=== PATIENT | male | born 1970 | race African-American/Black ===

== ENCOUNTER 2018-05-29 19:51 | Emergency (ER) | payer OTHER ==
--- NOTE | 2018-05-29 20:24 | PDOC ---
History of Present Illness - General Stated Complaint: R/O PE Time Seen by Provider: 05/29/18 20:02 - History of Present Illness Initial Comments: 05/29/18 20:24 Mr. 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 Patient was evaluated at [facility] 05/21 for R sided leg pain with positive findings of decreased Right sided DVT. The patient denies shortness of breath, headache and dizziness. Denies fever, chills, nausea, vomit, diarrhea and constipation. Denies dysuria, frequency, urgency and hematuria. Past History - Past Medical History Allergies/Adverse Reactions: Allergies Allergy/AdvReac Type Severity Reaction Status Date / Time apple Allergy Verified 05/29/18 20:22 carrot Allergy Verified 05/29/18 20:22 Penicillins Allergy Verified 05/29/18 20:22 shellfish derived Allergy Verified 05/29/18 20:22 Home Medications: Ambulatory Orders Docusate Sodium [Colace -] 300 mg PO HS #15 capsule 09/15/15 Warfarin Na [Coumadin -] 10 mg PO DAILY@1800 #30 tablet 09/15/15 Docusate Sodium [Colace -] 100 mg PO TID #90 capsule 09/30/15 Oxycodone HCl/Acetaminophen [Percocet 5-325 mg Tablet] 1 tab PO Q6H #60 tablet MDD 4 09/30/15 Warfarin Sodium [Coumadin] 10 mg PO DAILY #7 tablet 10/19/15 Cardiac Disorders: Yes (Bilateral DVTs) DVT: Yes (left) - Surgical History Lung Surgery: Yes (PE) - Suicide/Smoking/Psychosocial Hx Smoking History: Never smoked Have you smoked in the past 12 months: Yes Number of Cigarettes Smoked Daily: 2 'Breaking Loose' booklet given: 09/02/15 Hx Alcohol Use: No Drug/Substance Use Hx: No Substance Use Type: None Review of Systems - Review of Systems Comments:: 05/29/18 20:27 GENERAL/CONSTITUTIONAL: No fever or chills. No weakness. HEAD, EYES, EARS, NOSE AND THROAT: No change in vision. No ear pain or discharge. No sore throat. CARDIOVASCULAR: +Left sided chest pain as described. No shortness of breath RESPIRATORY: No cough, wheezing, or hemoptysis. GASTROINTESTINAL: No nausea, vomiting, diarrhea or constipation. GENITOURINARY: No dysuria, frequency, or change in urination. MUSCULOSKELETAL: No joint or muscle swelling or pain. No neck or back pain. SKIN: No rash NEUROLOGIC: No headache, vertigo, loss of consciousness, or change in strength/ sensation. ENDOCRINE: No increased thirst. No abnormal weight change HEMATOLOGIC/LYMPHATIC: No anemia, easy bleeding, or history of blood clots. ALLERGIC/IMMUNOLOGIC: No hives or skin allergy. *Physical Exam - Physical Exam Comments: 05/29/18 20:27 GENERAL: Awake, alert, and fully oriented, in no acute distress HEAD: No signs of trauma, normocephalic, atraumatic EYES: PERRLA, EOMI, sclera anicteric, conjunctiva clear ENT: Auricles normal inspection, hearing grossly normal, nares patent, oropharynx clear without exudates. Moist mucosa NECK: Normal ROM, supple, no lymphadenopathy, JVD, or masses LUNGS: No distress, speaks full sentences, clear to auscultation bilaterally HEART: Regular rate and rhythm, normal S1 and S2, no murmurs, rubs or gallops, peripheral pulses normal and equal bilaterally. ABDOMEN: Soft, nontender, normoactive bowel sounds. No guarding, no rebound. No masses EXTREMITIES: Normal inspection, Normal range of motion, no edema. No clubbing or cyanosis. NEUROLOGICAL: Cranial nerves II through XII grossly intact. Normal speech, normal gait, no focal sensorimotor deficits SKIN: Warm, Dry, normal turgor, no rashes or lesions noted. ED Treatment Course - LABORATORY CBC & Chemistry Diagram: 05/29/18 21:00 05/29/18 21:00 Medical Decision Making - Medical Decision Making 05/29/18 20:28 Mr. Nolan is a 47 yo male w/ pmh as described who presents for evaluation of symptoms concerning for DVT vs. PE vs. ACS. 05/29/18 23:58 Patient evaluated with Chest CTA with no acute findings. Labs grossly wnl as below. No concern for acute process at this time. Patient pain controlled with toradol. Suspect etiology of pain costochondritis. Discharging to home for further outpatient management of DVT with current lovenox regimen. *DC/Admit/Observation/Transfer Diagnosis at time of Disposition: Costochondritis - Discharge Dispostion Disposition: HOME - Referrals Referrals: Gabbie Hernandes MD [Primary Care Provider] - - Patient Instructions Printed Discharge Instructions: DI for Atypical Chest Pain Additional Instructions: You were evaluated today in the ER for your chest pain. We performed a chest CTA to evaluate for PE which was negative. No concerning findings were found on laboratory evaluation. Please follow-up with primary care provider in 1-2 days for further evaluation. Return to ER if any difficulty breathing, fever, increase in pain, or other concerning symptoms. - Post Discharge Activity
[2018-05-29 20:35] VITALS: BP 107/73; PULSE 63; TEMP 98.6; BMI 38.0
--- NOTE | 2018-05-29 20:35 | PDOC ---
Attending Attestation - HPI HPI: 05/29/18 20:46 The patient is a 47 year old male, with a significant past medical history of DM , prior DVT/PE (on Lovenox), sarcoidosis, OA, L eye blindness, who presents to the emergency department with, left-sided rib pain radiating to the back which he describes similar to his previous PE. Patient has a known RLE DVT which was getting smaller on ultrasound done 05/21 at [facility]. He denies any recent fevers, chills, headache or dizziness. He denies any recent nausea, vomit, diarrhea or constipation. He denies any recent palpitations or shortness of breath. He denies any recent dysuria, frequency, urgency or hematuria. Allergies: Penicillin, apple, carrot, shellfish derived. Primary Care Physician: Dr. Hernandes <Clara Dodson - Last Filed: 05/29/18 20:53> - Resident Resident Name: Vadim Bobby - ED Attending Attestation I have performed the following: I have examined & evaluated the patient, The case was reviewed & discussed with the resident, I agree w/resident's findings & plan, Exceptions are as noted - Physicial Exam PE: 05/30/18 00:00 Agree with details of exam as documented by resident No point tenderness, swelling, deformity over rib where pt is having px Normal BS, CTAB, normal wob - Medical Decision Making 05/30/18 00:01 Pt with hx of dvt/pe with pleuritic cp similar in sensation to prior PE r/o PE CTA neg for acute PE or other acute intrathoracic pathology Labs unremarkable Pt is well appearing, normal WOB DC home with strict return instructions <Zachary Moreira - Last Filed: 05/30/18 00:04> Attestations - Attestations 05/29/18 20:46 Documentation prepared by Clara Dodson, acting as medical anthropologist for Zachary Moreira MD. <Clara Dodson - Last Filed: 05/29/18 20:53>
[2018-05-29 21:26] LABS: BASO % 0.8 % (0-2.0); EOS % 2.4 % (0-4.5); HEMATOCRIT 43.8 % (35.4-49); HEMOGLOBIN 15.3 GM/dL (11.7-16.9); LYMPH % 47.1 % (8-40); MCH 32.7 pg (25.7-33.7); MEAN CELL VOLUME 93.5 fl (80-96); MEAN PLT VOLUME 8.7 fl (7.5-11.1); MONO % 10.3 % (3.8-10.2); NEUT % 39.4 % (42.8-82.8); PLATELET COUNT 190 K/MM3 (134-434); RBC 4.68 M/mm3 (4.00-5.60); WHITE BLOOD COUNT 4.7 K/mm3 (4.0-10.0)
[2018-05-29 21:52] LABS: INR 0.99 (0.83-1.09); PROTHROMBIN TIME (PATIENT) 11.7 SEC (9.7-13.0)
[2018-05-29 21:55] LABS: ACTIVATED PTT 35.8 SECONDS (25.2-36.5)
[2018-05-29 22:20] LABS: ALK PHOS 143 U/L (45-117); ANION GAP 6 MMOL/L (8-16); BLOOD UREA NITROGEN 13 mg/dL (7-18); CALCIUM 9.2 mg/dL (8.5-10.1); CHLORIDE 101 mmol/L (98-107); CO2 28 mmol/L (21-32); CREATININE 0.9 mg/dL (0.55-1.3); GLUCOSE,RANDOM 147 mg/dL (74-106); POTASSIUM 4.5 mmol/L (3.5-5.1); SGOT/AST 33 U/L (15-37); SGPT/ALT 46 U/L (13-61); SODIUM 135 mmol/L (136-145); TOT PROT 7.9 g/dl (6.4-8.2)
[2018-05-29] MEDS ORDERED: KETOROLAC TROMETHAMINE 15 MG/ML VIAL IVPUSH ONE (23:57)
[2018-05-30] MEDS ORDERED: KETOROLAC TROMETHAMINE 15 MG/ML VIAL ONE (00:08)
--- NOTE | 2018-05-30 10:57 | EKG ---
Test Reason : Blood Pressure : / mmHG Vent. Rate : 063 BPM Atrial Rate : 063 BPM P-R Int : 200 ms QRS Dur : 092 ms QT Int : 412 ms P-R-T Axes : 051 038 059 degrees QTc Int : 421 ms NORMAL SINUS RHYTHM NORMAL ECG NO PREVIOUS ECGS AVAILABLE Confirmed by MARITZA BURRELL MD ([id number]) on 05/30/2018 10:57:00 AM Referred By: Confirmed By:MARITZA BURRELL MD
== END 2018-05-30 02:58 | disposition home or self-care (01) ==
LOC: JER 19:51
PROC: 3E0333Z Introduction of Anti-inflammatory into Peripheral Vein, Percutaneous Approach (ICD-10-PCS; principal; 2018-05-29)
DX: M94.0 Chondrocostal junction syndrome [Tietze] (principal); Z86.718 Personal history of other venous thrombosis and embolism; Z79.01 Long term (current) use of anticoagulants; E11.9 Type 2 diabetes mellitus without complications; D86.9 Sarcoidosis, unspecified; M19.90 Unspecified osteoarthritis, unspecified site; H54.40 Blindness, one eye, unspecified eye
CPT/HCPCS: 36415; 71275-TC; 80053; 82550; 82553; 84484; 85025; 85610; 85730; 86850; 86900; 86901; 93005; 93010; 99283-25

== ENCOUNTER 2019-01-28 14:39 | Inpatient (IN) | payer OTHER ==
--- NOTE | 2019-01-28 16:43 | PDOC ---
Documentation entered by Clara Dodson SCRIBE, acting as scribe for Issa Pablo MD. Issa Pablo MD: This documentation has been prepared by the Ivory silva Nirvannie, SCRIBE, under my direction and personally reviewed by me in its entirety. I confirm that the documentation accurately reflects all work, treatment, procedures, and medical decision making performed by me. Attending Attestation - Resident Resident Name: LeviTomasa - ED Attending Attestation I have performed the following: I have examined & evaluated the patient, The case was reviewed & discussed with the resident, I agree w/resident's findings & plan, Exceptions are as noted - HPI HPI: 01/28/19 16:26 The patient is a 48 year old male, with a significant past medical history of DM (?compliance with Januvia), prior DVT/PE (on Lovenox, ? compliance), sarcoidosis, OA, L eye blindness, who presents to the emergency department with right thigh pain and erythema. He first noticed a pimple on his medial right thigh 2 days ago. The pt then began to experience diffuse erythema to the thigh and 9/10 tenderness radiating down the right lower extremity. He notes difficulty ambulating secondary to pain. He also notes mild L calf pain and subjective fevers. As per patient, he saw his PCP Dr. North earlier today at which time he was advised to report to the ED for IV antibiotics. Pt denies F/C. He denies any recent chest pain or shortness of breath. He denies any foul smelling discharge. He denies any recent nausea, vomiting, diarrhea or constipation. He denies any recent dysuria, frequency, urgency or hematuria. Allergies: Penicillin, apple, carrot, shellfish derived. - Physicial Exam PE: 01/28/19 16:39 GENERAL: Awake, alert, and fully oriented, in no acute distress. HEAD: No signs of trauma EYES: PERRLA, EOMI, sclera anicteric, conjunctiva clear ENT: Auricles normal inspection, hearing grossly normal, nares patent, oropharynx clear without exudates. Moist mucosa NECK: Nontender, no stepoffs, Normal ROM, supple, no lymphadenopathy, JVD, or masses LUNGS: Breath sounds equal, clear to auscultation bilaterally. No wheezes, and no crackles HEART: Regular rate and rhythm, normal S1 and S2, no murmurs, rubs or gallops ABDOMEN: Soft, nontender, normoactive bowel sounds. No guarding, no rebound. No masses EXTREMITIES: Normal range of motion, no edema. No clubbing or cyanosis. No cords, erythema, or tenderness NEUROLOGICAL: Cranial nerves II through XII intact. 5/5 strength and sensation in all extremities, Normal speech, normal gait, normal cerebellar function SKIN: + 10cm area of erythema to medial R thigh, with induration and fluctuance centrally, + drainage of purulent material - Medical Decision Making 01/28/19 16:47 48 M with cellulitis and abscess of R thigh. - Labs - Cultures - I&D - Admit for IV abx 01/28/19 18:10 Abscess I&D'ed Clindamycin started Will admit for IV abx 01/28/19 18:50 US shows extensive LLE DVT. Pt has known h/o DVT and IVC filter in place. Is on lovenox at home (but likely noncompliant). Will order 1mg/kg lovenox SQ Pt denies CP/SOB, low suspicion for PE.
[2019-01-28] MEDS ORDERED: CLINDAMYCIN 600MG PREMIX IVPB 600 MG/50 ML BAG IVPB ONE (16:57)
--- NOTE | 2019-01-28 17:05 | PDOC ---
History of Present Illness - General Chief Complaint: Abscess Boil Stated Complaint: SENT BY PCP/LEG PAIN Time Seen by Provider: 01/28/19 15:06 History Source: Patient - History of Present Illness Initial Comments: 01/28/19 17:08 48 yo M PMH of DVT/ PE ( on lovenox) , Sarcoidosis ,DM, R eye blindness presents from [facility](Dr. North) for R thigh swelling, pain, abscess. pt states yesterday there was a small pimple there and he tried to scrub it. This morning he woke up and the leg was very painful and red. He states the pain is 9/10 and radiates down the leg. pt states he has a similar "pimple" on L buttock but its not red. Pt states he has fevers and a cough. denies n/v/SOB, or cp 01/28/19 17:35 PMD : Dr. Gabbie Arrington Past History - Past Medical History Allergies/Adverse Reactions: Allergies Allergy/AdvReac Type Severity Reaction Status Date / Time apple Allergy Verified 01/28/19 14:51 carrot Allergy Verified 01/28/19 14:51 Penicillins Allergy Verified 01/28/19 14:51 shellfish derived Allergy Verified 01/28/19 14:51 Home Medications: Ambulatory Orders Docusate Sodium [Colace -] 300 mg PO HS #15 capsule 09/15/15 Warfarin Na [Coumadin -] 10 mg PO DAILY@1800 #30 tablet 09/15/15 Docusate Sodium [Colace -] 100 mg PO TID #90 capsule 09/30/15 Oxycodone HCl/Acetaminophen [Percocet 5-325 mg Tablet] 1 tab PO Q6H #60 tablet MDD 4 09/30/15 Warfarin Sodium [Coumadin] 10 mg PO DAILY #7 tablet 10/19/15 Cardiac Disorders: Yes (Bilateral DVTs, blood clot in heart) COPD: No DVT: Yes (left) HTN: Yes Other medical history: pt states he had a blood clot size of football,arthritis - Surgical History Lung Surgery: Yes (PE) - Psycho Social/Smoking Cessation Hx Smoking History: Never smoked Have you smoked in the past 12 months: Yes Number of Cigarettes Smoked Daily: 2 Information on smoking cessation initiated: No 'Breaking Loose' booklet given: 09/02/15 Hx Alcohol Use: No Drug/Substance Use Hx: No Substance Use Type: None Review of Systems - Review of Systems Able to Perform ROS?: Yes Constitutional: Yes: Fever. No: Chills Respiratory: Yes: Cough. No: Shortness of Breath Cardiac (ROS): No: Chest Pain, Lightheadedness ABD/GI: No: Abdominal Distended, Diarrhea, Nausea, Vomiting, Abdominal cramping Musculoskeletal: No: Back Pain Integumentary: Yes: Erythema (R thigh), Lesions Neurological: Yes: Unsteady Gait (bc of pain from leg). No: Headache, Dizziness *Physical Exam - Vital Signs Last Vital Signs Temp Pulse Resp BP Pulse Ox 98.1 F 70 19 125/71 96 01/28/19 14:46 01/28/19 14:46 01/28/19 14:46 01/28/19 14:46 01/28/19 14:46 - Physical Exam General Appearance: Yes: Nourished, Appropriately Dressed. No: Apparent Distress HEENT: positive: Normal Voice Respiratory/Chest: positive: Lungs Clear, Normal Breath Sounds. negative: Respiratory Distress, Accessory Muscle Use, Wheezing Cardiovascular: positive: Regular Rhythm, Regular Rate, S1, S2 Vascular Pulses: Dorsalis-Pedis (R): 2+, Doralis-Pedis (L): 2+ Gastrointestinal/Abdominal: positive: Normal Bowel Sounds, Tender (RUQ to deep palpation), Soft, Hepatomegaly. negative: Distended Extremity: positive: Tender (R thigh ), Swelling, Calf Tenderness (LLE), Erythema (R thigh ), Inflammation Integumentary: positive: Dry, Warm Procedures - Incision and Drainage I&D Site: Right: Leg (thigh) Betadine cleansed: Yes Anesthesia: 1% Lidocaine Volume(ml): 2 Blade Size: 11 Plain Packing: No Dressing: No ED Treatment Course - LABORATORY CBC & Chemistry Diagram: 01/28/19 17:10 01/28/19 17:10 Medical Decision Making - Medical Decision Making 01/28/19 17:12 48 yo M presenting with abscess r/o DVT -abscess vs cellulitis -bedside u/s revealed collection. I&D performed. starting IV clinda . will obtain blood Cx -cbc, cmp -b/l duplex u/s to r/o dvt 01/28/19 19:05 duplex shows extensive LLE DVT. will give lovenox CMP shows elevated bili and alk phos. ordered RUQ u/s. u/s shows cholelithiasis no cholecytitis. admit to medicine Discharge - Discharge Information Problems reviewed: Yes Clinical Impression/Diagnosis: Cellulitis and abscess of right lower extremity DVT (deep venous thrombosis) Qualifiers: DVT location: lower extremity Affected thrombotic vein of extremity: femoral Chronicity: unspecified Laterality: left Qualified Code(s): I82.412 - Acute embolism and thrombosis of left femoral vein - Admission Yes - Follow up/Referral Referrals: Gabbie Hernandes MD [Primary Care Provider] - - Patient Discharge Instructions - Post Discharge Activity
[2019-01-28] MEDS: CLINDAMYCIN 600MG PREMIX IVPB 600 MG/50 ML BAG IVPB SCH ×2 (17:13→21:55)
[2019-01-28 17:32] LABS: BASO % 0.7 % (0-2.0); EOS % 1.1 % (0-4.5); HEMATOCRIT 41.6 % (35.4-49); HEMOGLOBIN 13.9 GM/dL (11.7-16.9); LYMPH % 18.2 % (8-40); MCH 31.4 pg (25.7-33.7); MCHC 33.4 g/dl (32.0-35.9); MEAN CELL VOLUME 93.8 fl (80-96); MEAN PLT VOLUME 8.3 fl (7.5-11.1); MONO % 7.7 % (3.8-10.2); NEUT % 72.3 % (42.8-82.8); PLATELET COUNT 223 K/MM3 (134-434); RBC 4.43 M/mm3 (4.00-5.60); RDW 13.6 % (11.9-15.9); WHITE BLOOD COUNT 11.3 K/mm3 (4.0-10.0)
[2019-01-28] MEDS ORDERED: ACETAMINOPHEN 325 MG TABLET (FP) PO PRN ×2 (17:34→21:38)
[2019-01-28 17:59] LABS: ALBUMIN 3.8 g/dl (3.4-5.0); BILIRUBIN,TOTAL 2.1 mg/dL (0.2-1); BLOOD UREA NITROGEN 9.6 mg/dL (7-18); TOT PROT 7.7 g/dl (6.4-8.2)
[2019-01-28] MEDS ORDERED: ENOXAPARIN NA (PORCINE) 120 MG/0.8 ML DISP.SYRIN SQ ONE (18:51)
[2019-01-28] MEDS ORDERED: ENOXAPARIN NA (PORCINE) 60 MG/0.6 ML DISP.SYRIN SQ ONE (19:41)
[2019-01-28] MEDS ORDERED: ACETAMINOPHEN 325 MG TABLET (FP) ONE (19:41)
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
[2019-01-28] MEDS ORDERED: SODIUM CHLORIDE 1,000 ML IV SCH (21:45)
[2019-01-28] MEDS ORDERED: ENOXAPARIN NA (PORCINE) 120 MG/0.8 ML DISP.SYRIN SQ SCH (22:00)
[2019-01-28] MEDS ORDERED: VANCOMYCIN 1 GM in D5W (PRE-DOCKED) 1,000 MG/250 ML IVPB SCH (22:00)
[2019-01-28] MEDS ORDERED: cefTRIAXone SODIUM 1 GM VIAL ONE (22:01)
[2019-01-28] MEDS ORDERED: DEXTROSE 5%-WATER - 50 ML IVPB ONE (22:01)
[2019-01-28] MEDS ORDERED: ACETAMINOPHEN 1000 MG/100 ML VIAL (NON FORMULARY) IVPB ONE (22:29)
[2019-01-28] MEDS: CEFTRIAXONE 1 GM in DEXTROSE 5%-WATER - 50 ML IVPB SCH (22:31)
--- NOTE | 2019-01-29 01:32 | PN ---
Teaching Attending Note Name of Resident: Ana Daniel ATTENDING PHYSICIAN STATEMENT I saw and evaluated the patient. I reviewed the resident's note and discussed the case with the resident. I agree with the resident's findings and plan as documented. 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 He began to experience severe tenderness radiating down the right lower extremity and was having difficulty with ambulation. Patient saw his PCP, Dr. North and was advised to report to the ED for IV antibiotics. OBJECTIVE: Last Vital Signs Temp Pulse Resp BP Pulse Ox 98.6 F 70 20 102/76 97 01/28/19 21:38 01/28/19 14:46 01/28/19 21:38 01/28/19 21:38 01/28/19 21:31 GENERAL: Well developed, well nourished. Awake and alert. No acute distress. HEENT: Normocephalic, atraumatic. PERRLA, EOMI. No conjunctival pallor. Sclera are non- icteric. Moist mucous membranes. Oropharynx is clear. NECK: Supple. Full ROM. No JVD. Carotid pulses 2+ and symmetric, without bruits. No thyromegaly. No lymphadenopathy. CARDIOVASCULAR: Regular rate and rhythm. No murmurs, rubs, or gallops. Distal pulses are 2+ and symmetric. PULMONARY: No evidence of respiratory distress. Lungs clear to auscultation bilaterally. No wheezing, rales or rhonchi. ABDOMINAL: Soft. Non-tender. Non-distended. No rebound or guarding. No organomegaly. Normoactive bowel sounds. MUSCULOSKELETAL Normal range of motion at all joints. No bony deformities or tenderness. No CVA tenderness. EXTREMITIES: Right inner thigh erythema and fluctuance SKIN: Warm and dry. Normal capillary refill. No rashes. No jaundice. PSYCHIATRIC: Cooperative. Good eye contact. Appropriate mood and affect. Abnormal Lab Results 01/28/19 01/28/19 17:10 17:10 WBC 11.3 H Absolute Neuts (auto) 8.1 H Anion Gap 5 L Random Glucose 152 H Total Bilirubin 2.1 H Alkaline Phosphatase 164 H Imaging studies reviewed Lower extremity duplex showed extensive left lower extremity DVT ASSESSMENT AND PLAN: 48-year-old male with right lower extremity cellulitis, Leukocytosis, appears extensive involving entire thigh and streaking down to leg. May have been related to scratching Blood cultures x2 ESR and CRP Vancomycin and ceftriaxone empirically A1c #Left lower extremity DVT Lovenox therapeutic dose #DVT prophylaxison Lovenox therapeutic dose already
[2019-01-29] MEDS ORDERED: cefTRIAXone SODIUM 1 GM VIAL ONE (08:55)
[2019-01-29] MEDS ORDERED: DEXTROSE 5%-WATER - 50 ML IVPB ONE (08:56)
[2019-01-29 09:15] LABS: BASO % 0.5 % (0-2.0); EOS % 4.8 % (0-4.5); HEMATOCRIT 39.3 % (35.4-49); HEMOGLOBIN 13.5 GM/dL (11.7-16.9); LYMPH % 28.3 % (8-40); MCH 31.6 pg (25.7-33.7); MCHC 34.2 g/dl (32.0-35.9); MEAN CELL VOLUME 92.3 fl (80-96); MEAN PLT VOLUME 8.3 fl (7.5-11.1); MONO % 11.2 % (3.8-10.2); NEUT % 55.2 % (42.8-82.8); PLATELET COUNT 206 K/MM3 (134-434); RBC 4.26 M/mm3 (4.00-5.60); RDW 13.5 % (11.9-15.9); WHITE BLOOD COUNT 6.1 K/mm3 (4.0-10.0)
[2019-01-29 09:57] LABS: ALBUMIN 3.2 g/dl (3.4-5.0); BILIRUBIN,TOTAL 1.4 mg/dL (0.2-1); BLOOD UREA NITROGEN 10.7 mg/dL (7-18); CALCIUM 8.5 mg/dL (8.5-10.1); CREATININE 0.9 mg/dL (0.55-1.3); MAGNESIUM 2.3 mg/dL (1.8-2.4); PHOSPHOROUS 4.2 mg/dL (2.5-4.9); POTASSIUM 4.1 mmol/L (3.5-5.1); TOT PROT 6.8 g/dl (6.4-8.2)
[2019-01-29] MEDS: ENOXAPARIN NA (PORCINE) 120 MG/0.8 ML DISP.SYRIN SQ SCH ×2 (10:08→21:03)
[2019-01-29] MEDS: CEFTRIAXONE 1 GM in DEXTROSE 5%-WATER - 50 ML IVPB SCH (10:08)
[2019-01-29 11:42] LABS: BILIRUBIN,DIRECT 0.4 mg/dL (0.0-0.2)
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
--- NOTE | 2019-01-29 14:13 | PN ---
Physical Exam: SUBJECTIVE: Patient seen and examined. No acute events overnight. Pt denies any fevers or chills. Pain in RLE is controlled. He is able to ambulate. Denies abd pain, nausea, or vomiting. OBJECTIVE: Vital Signs Period Temp Pulse Resp BP Sys/Rees Pulse Ox Last 24 Hr 97.3 F-98.6 F 70-70 19-20 97-125/65-76 96-97 GENERAL: The patient is awake, alert, and fully oriented, in no acute distress. HEAD: Normal with no signs of trauma. EYES: PERRL, extraocular movements intact, sclera anicteric, conjunctiva clear. No ptosis. NECK: Trachea midline, full range of motion, supple. LUNGS: Breath sounds equal, clear to auscultation bilaterally, no wheezes, no crackles, no accessory muscle use. HEART: Regular rate and rhythm, S1, S2 without murmur, rub or gallop. ABDOMEN: Soft, nontender, nondistended, normoactive bowel sounds, no guarding, no rebound, no hepatosplenomegaly, no masses. Negative Saavedra's sign. EXTREMITIES: 2+ pulses, warm L>R, well-perfused, trace edema L>R. L calf tenderness. NEUROLOGICAL: Cranial nerves II through XII grossly intact. Normal speech, gait not observed. PSYCH: Normal mood, normal affect. SKIN: Warm, dry, normal turgor, 1cm ulcer on R thigh, erythematous and fluctuant. Mild serosanguinous discharge. Laboratory Results - last 24 hr CBC, BMP 01/29/19 07:55 01/29/19 07:55 Active Medications Acetaminophen (Tylenol -) 650 mg PO Q4H PRN PRN Reason: PAIN LEVEL 1-5 Last Admin: 01/29/19 10:06 Dose: 650 mg Enoxaparin Sodium (Lovenox -) 120 mg SQ Q12H [facility] Last Admin: 01/29/19 10:08 Dose: 120 mg Ceftriaxone Sodium 1 gm/ (Dextrose) 50 mls @ 100 mls/hr IVPB DAILY [facility]; Protocol Last Admin: 01/29/19 10:08 Dose: 100 mls/hr Sodium Chloride (Normal Saline -) 1,000 mls @ 75 mls/hr IV ASDIR [facility]OS[facility] Last Admin: 01/28/19 21:58 Dose: 75 mls/hr Insulin Aspart (Novolog Vial Sliding Scale -) 1 vial SQ TIDAC [facility]; Protocol Vancomycin HCl (Vancomycin (Pre-Docked)) 1,000 mg IVPB DAILY [facility]; Protocol ASSESSMENT/PLAN: Patient is a 48 year old male with PMH sarcoidosis, DVTs, right eye blindness, and arthritis presents with R thigh redness, swelling and purulent drainage. Pt was admitted for right thigh cellulitis complicated with abscess s/p drain and new DVT on LLE. 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 Non-compliant with medication. Cont Lovenox 120 sq BID #RLE cellulitis w/abscess s/p I&D in ED I&D of 2ml fluid in ED Cont 1gm vancomycin and 1gm ceftriaxone (Day 2) Blood and wound cx pending MRSA screen ESR: 44 CRP: 8.6, monitor Gen surg consulted (Dr. Lang): scheduled I&D with washout 01/30/19 ID consulted (Dr. Issa) for abx coverage Fall precautions Tylenol 650mg Q4H prn for pain PT eval #Newly diagnosed diabetes Pt denies hx of diabetes Hgb A1C: 7.8% Initiate SSI TIDAC BGM ACHS Diabetic and nutrition counseling #Transaminitis T-bili: 2.1, ALP: 164, D-bili: 0.4 RUQ US: cholelithiasis, no evidence of cholecystitis, no biliary tract distension. Suggestive hepatic cirrhosis #Substance abuse F/u Utox #Sarcoidosis No hx of acute flares CXR: degenerative changes with wedging , no acute processes Pt does not f/u with rn family practice regularly. Consider outpatient appt on d/ c #FEN IV NS @ 75ml/hr Diabetic diet, NPO after midnight (except po meds) #DVT ppx On therapeutic lovenox, can cont given his risk. #Dispo Monitor on med-surg Visit type - Emergency Visit Emergency Visit: No - New Patient This patient is new to me today: Yes Date on this admission: 01/29/19 - Critical Care Critical Care patient: No ATTENDING PHYSICIAN STATEMENT I saw and evaluated the patient. I reviewed the resident's note and discussed the case with the resident. I agree with the resident's findings and plan as documented. SUBJECTIVE: OBJECTIVE: ASSESSMENT AND PLAN:
--- NOTE | 2019-01-29 14:46 | EKG ---
Test Reason : Blood Pressure : / mmHG Vent. Rate : 082 BPM Atrial Rate : 082 BPM P-R Int : 182 ms QRS Dur : 086 ms QT Int : 380 ms P-R-T Axes : 053 033 048 degrees QTc Int : 443 ms POOR DATA QUALITY, INTERPRETATION MAY BE ADVERSELY AFFECTED NORMAL SINUS RHYTHM POSSIBLE LEFT ATRIAL ENLARGEMENT BORDERLINE ECG WHEN COMPARED WITH ECG OF 29-MAY-2018 20:54, NO SIGNIFICANT CHANGE WAS FOUND Confirmed by TADEO ZELAYA, TOMY ([id number]) on 01/29/2019 2:46:10 PM Referred By: Confirmed By:TOMY PIEDRA MD
--- NOTE | 2019-01-29 15:52 | PN ---
Teaching Attending Note Name of Resident: Paulette Jeff ATTENDING PHYSICIAN STATEMENT I saw and evaluated the patient. I reviewed the resident's note and discussed the case with the resident. I agree with the resident's findings and plan as documented with exceptions below. SUBJECTIVE: Patient seen and examined, right thigh pain/redness, overall unchanged, left leg pain. no dyspnea, chest pain or concerns. OBJECTIVE: Vital Signs Period Temp Pulse Resp BP Sys/Rees Pulse Ox Last 24 Hr 97.3 F-98.6 F 70-77 20-20 97-124/65-76 97 Intake & Output 01/26/19 01/27/19 01/28/19 01/29/19 23:59 23:59 23:59 23:59 Intake Total 450 Output Total 400 300 Balance 50 -300 Weight 263 lb 6.4 oz General: sitting in bed in no acute distress CVS:S1S2 regular Chest: CTAb, no rales or wheezing Abdomen: soft, obese, NT Extremities: Right thigh 1 cm wound with purulent drainage, surrounding erythema extending upto 10 cm, pos warmth tenderness, left calf tenderness, pos DP pulses Home Medications Medication Instructions Recorded Enoxaparin [Lovenox -] 180 mg SQ BID 01/28/19 Active Medications Acetaminophen (Tylenol -) 650 mg PO Q4H PRN PRN Reason: PAIN LEVEL 1-5 Last Admin: 01/29/19 10:06 Dose: 650 mg Enoxaparin Sodium (Lovenox -) 120 mg SQ Q12H JOSIAH Last Admin: 01/29/19 10:08 Dose: 120 mg Sodium Chloride (Normal Saline -) 1,000 mls @ 75 mls/hr IV ASDIR [facility]OS[facility] Last Admin: 01/28/19 21:58 Dose: 75 mls/hr Vancomycin HCl 1,500 mg/ (Dextrose) 500 mls @ 250 mls/hr IVPB Q12H [facility]; Protocol Ceftriaxone Sodium 2 gm/ (Dextrose) 100 mls @ 200 mls/hr IVPB DAILY [facility]; Protocol Insulin Aspart (Novolog Vial Sliding Scale -) 1 vial SQ TIDAC [facility]; Protocol Laboratory Results - last 24 hr 01/28/19 01/28/19 01/28/19 17:10 17:10 18:58 WBC 11.3 H RBC 4.43 Hgb 13.9 Hct 41.6 MCV 93.8 MCH 31.4 MCHC 33.4 RDW 13.6 Plt Count 223 MPV 8.3 Absolute Neuts (auto) 8.1 H Neutrophils % 72.3 D Lymphocytes % 18.2 D Monocytes % 7.7 Eosinophils % 1.1 Basophils % 0.7 Nucleated RBC % 0 ESR PTT (Actin FS) 30.3 Sodium 136 Potassium 4.0 Chloride 102 Carbon Dioxide 29 Anion Gap 5 L BUN 9.6 Creatinine 1.0 Est GFR (CKD-EPI)AfAm 104.15 Est GFR (CKD-EPI)NonAf 89.86 Random Glucose 152 H Hemoglobin A1c % Calcium 9.0 Phosphorus Magnesium Total Bilirubin 2.1 H Direct Bilirubin AST 31 ALT 34 Alkaline Phosphatase 164 H C-Reactive Protein Total Protein 7.7 Albumin 3.8 Urine Color Urine Appearance Urine pH Ur Specific [place] Urine Protein Urine Glucose (UA) Urine Ketones Urine Blood Urine Nitrite Urine Bilirubin Urine Urobilinogen Ur Leukocyte Esterase Opiates Screen Methadone Screen Barbiturate Screen Ur Amphetamines Screen MDMA (Ecstasy) Screen Benzodiazepines Screen Cocaine Screen U Marijuana (THC) Screen 01/29/19 01/29/19 01/29/19 07:55 07:55 07:55 WBC 6.1 RBC 4.26 Hgb 13.5 Hct 39.3 MCV 92.3 MCH 31.6 MCHC 34.2 RDW 13.5 Plt Count 206 MPV 8.3 Absolute Neuts (auto) 3.4 Neutrophils % 55.2 D Lymphocytes % 28.3 D Monocytes % 11.2 H Eosinophils % 4.8 H D Basophils % 0.5 Nucleated RBC % 0 ESR 44 H PTT (Actin FS) Sodium 140 Potassium 4.1 Chloride 105 Carbon Dioxide 30 Anion Gap 4 L BUN 10.7 Creatinine 0.9 Est GFR (CKD-EPI)AfAm 118.30 Est GFR (CKD-EPI)NonAf 102.07 Random Glucose 116 H Hemoglobin A1c % Calcium 8.5 Phosphorus 4.2 Magnesium 2.3 Total Bilirubin 1.4 H Direct Bilirubin 0.4 H AST 37 ALT 36 Alkaline Phosphatase 147 H C-Reactive Protein 8.6 H Total Protein 6.8 Albumin 3.2 L Urine Color Urine Appearance Urine pH Ur Specific [place] Urine Protein Urine Glucose (UA) Urine Ketones Urine Blood Urine Nitrite Urine Bilirubin Urine Urobilinogen Ur Leukocyte Esterase Opiates Screen Methadone Screen Barbiturate Screen Ur Amphetamines Screen MDMA (Ecstasy) Screen Benzodiazepines Screen Cocaine Screen U Marijuana (THC) Screen 01/29/19 01/29/19 01/29/19 07:55 15:15 15:15 WBC RBC Hgb Hct MCV MCH MCHC RDW Plt Count MPV Absolute Neuts (auto) Neutrophils % Lymphocytes % Monocytes % Eosinophils % Basophils % Nucleated RBC % ESR PTT (Actin FS) Sodium Potassium Chloride Carbon Dioxide Anion Gap BUN Creatinine Est GFR (CKD-EPI)AfAm Est GFR (CKD-EPI)NonAf Random Glucose Hemoglobin A1c % 7.8 H Calcium Phosphorus Magnesium Total Bilirubin Direct Bilirubin AST ALT Alkaline Phosphatase C-Reactive Protein Total Protein Albumin Urine Color Dk yellow Urine Appearance Clear Urine pH 6.5 Ur Specific [place]ott 1.034 Urine Protein Trace Urine Glucose (UA) Trace Urine Ketones Negative Urine Blood Negative Urine Nitrite Negative Urine Bilirubin 1+ H Urine Urobilinogen >=8.0 e.u./dl Ur Leukocyte Esterase Negative Opiates Screen Negative Methadone Screen Negative Barbiturate Screen Negative Ur Amphetamines Screen Negative MDMA (Ecstasy) Screen Negative Benzodiazepines Screen Negative Cocaine Screen Negative U Marijuana (THC) Screen Negative LE duplex results reviewed ASSESSMENT AND PLAN: 48 yom with PMhx of sarcoidosis, Prior PE, multiple DVTs s/p IVC filter, thombectomy/Thrombolysis in 2016, prior on coumadin, now on lovenox (recent non compliance) , right eye blindness (got hit with a baseball in his youth) and arthritis admitted with right thigh abscess/cellulitis and LLE DVT -Right Thigh abscess/Cellulitis s/p I&D in ED -LLE DVT (acute on chronic), suspect in the setting of non compliance -New diagnosis of DM -H/o multile DVTs s/p IVC filter, also thombectomy/thrombolysis 2016 on full dose lovenox -Sarcoidosis -Right eye blindness -Arthritis Plan: Surgery consult, input appreciated, for I&D in AM NPO after midnight. Continue lovenox given his risk ID input, ceftriaxone/vancomycin. Send wound cultures ( not sent in ED) patient informed of the diagnosis of DM, a1c noted, start ISS, BGM. Diabetic education/counseling. Gentle hydration Drug screen. Dispo pending clinical improvement.
[2019-01-29 15:54] LABS: PH,URINE 6.5 (5.0-8.0); URINE APPEARANCE CLEAR; URINE BILIRUBIN 1+ (NEGATIVE); URINE COLOR DK YELLOW; URINE GLUCOSE (UA) TRACE (NEGATIVE); URINE KETONE NEGATIVE (NEGATIVE); URINE LEUK ESTERASE NEGATIVE (NEGATIVE); URINE NITRITE NEGATIVE (NEGATIVE); URINE PROTEIN TRACE (NEGATIVE); URINE UROBILINOGEN >=8.0 E.U./dl mg/dL (0.2-1.0)
--- NOTE | 2019-01-29 15:55 | PN ---
Progress Note (short form) - Note Progress Note: ID consult dictated imp/reccd right thigh abscess ?MRSA culture sent blood cultures pending vancomycin/rocephin for drainage in am recurrent DVT LLE history of sarcoid penicillin allergy Problem List - Problems (1) Cellulitis and abscess of right lower extremity Code(s): L03.115 - CELLULITIS OF RIGHT LOWER LIMB; L02.415 - CUTANEOUS ABSCESS OF RIGHT LOWER LIMB (2) DVT (deep venous thrombosis) Code(s): I82.409 - ACUTE EMBOLISM AND THOMBOS UNSP DEEP VN UNSP LOWER EXTREMITY Qualifiers: DVT location: lower extremity Affected thrombotic vein of extremity: femoral Chronicity: unspecified Laterality: left Qualified Code(s): I82.412 - Acute embolism and thrombosis of left femoral vein (3) Penicillin allergy Code(s): Z88.0 - ALLERGY STATUS TO PENICILLIN
[2019-01-29 16:03] LABS: COCAINE, UR NEGATIVE ng/ml (CUTOFF=300); METHADONE, UR NEGATIVE ng/ml (CUTOFF=300); OPIATES, URI NEGATIVE ng/ml (CUTOFF=300); URINE AMPHETAMINES NEGATIVE ng/ml (CUTOFF=500); URINE BARBITURATES NEGATIVE ng/ml (CUTOFF=200); URINE BENZODIAZEPINES NEGATIVE ng/ml (CUTOFF=200)
[2019-01-29 16:16] LABS: INR 1.08 (0.83-1.09); PROTHROMBIN TIME (PATIENT) 12.7 SEC (9.7-13.0)
[2019-01-29 16:17] LABS: PHENCYCLIDINE,URINE POSITIVE ng/ml (CUTOFF=25)
[2019-01-29] MEDS: VANCOMYCIN HCL 1,500 MG in DEXTROSE 5%-WATER - 500 ML IVPB SCH (17:57)
[2019-01-29] MEDS: INSULIN SLIDING SCALE (NOVOLOG) 1 VIAL SQ SCH (17:58)
[2019-01-29] MEDS: VANCOMYCIN 1 GM in D5W (PRE-DOCKED) 1,000 MG/250 ML IVPB SCH (18:04)
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
[2019-01-30] MEDS ORDERED: PT OWN MED DRAWER 7, Y5N ONE ×2 (01:20→09:37)
[2019-01-30] MEDS: VANCOMYCIN HCL 1,500 MG in DEXTROSE 5%-WATER - 500 ML IVPB SCH ×2 (03:08→17:11)
[2019-01-30] MEDS: INSULIN SLIDING SCALE (NOVOLOG) 1 VIAL SQ SCH ×3 (06:47→16:56)
[2019-01-30 07:42] LABS: HEMATOCRIT 40.9 % (35.4-49); HEMOGLOBIN 13.8 GM/dL (11.7-16.9); MCH 31.3 pg (25.7-33.7); MCHC 33.7 g/dl (32.0-35.9); MEAN CELL VOLUME 92.8 fl (80-96); MEAN PLT VOLUME 8.5 fl (7.5-11.1); PLATELET COUNT 223 K/MM3 (134-434); RBC 4.41 M/mm3 (4.00-5.60); RDW 13.6 % (11.9-15.9); WHITE BLOOD COUNT 5.4 K/mm3 (4.0-10.0)
[2019-01-30] MEDS: ENOXAPARIN NA (PORCINE) 120 MG/0.8 ML DISP.SYRIN SQ SCH ×2 (08:00→09:08)
[2019-01-30 08:23] LABS: BLOOD UREA NITROGEN 11.1 mg/dL (7-18); CALCIUM 8.9 mg/dL (8.5-10.1); CREATININE 0.9 mg/dL (0.55-1.3); MAGNESIUM 2.3 mg/dL (1.8-2.4); PHOSPHOROUS 4.1 mg/dL (2.5-4.9); POTASSIUM 4.4 mmol/L (3.5-5.1)
[2019-01-30] MEDS ORDERED: DEXTROSE 5%-WATER 100 ML IVPB ONE (09:38)
[2019-01-30] MEDS ORDERED: CEFTRIAXONE 2 GM in DEXTROSE 5%-WATER 100 ML IVPB SCH (10:00)
--- NOTE | 2019-01-30 10:12 | PN ---
Physical Exam: SUBJECTIVE: Patient seen and examined. No acute events overnight. Pt denies any fevers or chills. Pain in RLE is localized. OBJECTIVE: Vital Signs Period Temp Pulse Resp BP Sys/Rees Pulse Ox Last 24 Hr 97.6 F-98.9 F 67-120 20-20 101-124/58-71 GENERAL: The patient is awake, alert, and fully oriented, in no acute distress. HEAD: Normal with no signs of trauma. LUNGS: Breath sounds equal, clear to auscultation bilaterally, no wheezes, no crackles, no accessory muscle use. HEART: Regular rate and rhythm, S1, S2 without murmur, rub or gallop. ABDOMEN: Soft, nontender, nondistended, normoactive bowel sounds, no guarding, no rebound, no hepatosplenomegaly, no masses. Negative Saavedra's sign. EXTREMITIES: 2+ pulses, warm L>R, well-perfused, trace edema L>R. L calf tenderness improved. NEUROLOGICAL: Cranial nerves II through XII grossly intact. Normal speech, gait not observed. PSYCH: Normal mood, normal affect. SKIN: Warm, dry, normal turgor, 1cm ulcer on R thigh with mild pus. Surrounding erythema and induration. Laboratory Results - last 24 hr CBC, BMP 01/30/19 06:30 01/30/19 06:30 Active Medications Acetaminophen (Tylenol -) 650 mg PO Q4H PRN PRN Reason: PAIN LEVEL 1-5 Last Admin: 01/29/19 10:06 Dose: 650 mg Enoxaparin Sodium (Lovenox -) 120 mg SQ Q12H JOSIA[facility] Last Admin: 01/30/19 09:08 Dose: 120 mg Sodium Chloride (Normal Saline -) 1,000 mls @ 75 mls/hr IV ASDIR [facility]OSIA[facility] Last Admin: 01/28/19 21:58 Dose: 75 mls/hr Vancomycin HCl 1,500 mg/ (Dextrose) 500 mls @ 250 mls/hr IVPB Q12H [facility]; Protocol Last Admin: 01/30/19 03:08 Dose: 250 mls/hr Ceftriaxone Sodium 2 gm/ (Dextrose) 100 mls @ 200 mls/hr IVPB DAILY [facility]; Protocol Last Admin: 01/30/19 09:40 Dose: 200 mls/hr Insulin Aspart (Novolog Vial Sliding Scale -) 1 vial SQ TIDAC [facility]; Protocol Last Admin: 01/30/19 06:47 Dose: Not Given ASSESSMENT/PLAN: Patient is a 48 year old male with PMH sarcoidosis, DVTs, right eye blindness, and arthritis presents with R thigh redness, swelling and purulent drainage. Pt was admitted for right thigh cellulitis complicated with abscess s/p drain and new DVT on LLE. 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 Non-compliant with medication. Cont Lovenox 120 sq BID #RLE cellulitis w/abscess s/p I&D in ED I&D POD#0 (Dr. Lang) Cont 1.5gm vancomycin and 2gm ceftriaxone (Day 3) Blood and wound cx pending MRSA screen: positive (presumptive reading) ESR: 44 CRP: 8.6, monitor ID consulted (Dr. Issa) following, input appreciated Fall precautions Tylenol 650mg Q4H prn for pain PT eval #Newly diagnosed diabetes Pt denies hx of diabetes Hgb A1C: 7.8% Initiate SSI TIDAC BGM ACHS Diabetic and nutrition counseling #Transaminitis T-bili: 2.1, ALP: 164, D-bili: 0.4 RUQ US: cholelithiasis, no evidence of cholecystitis, no biliary tract distension. 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 Consider outpatient appt on d/ c #FEN IV NS @ 75ml/hr Diabetic diet #DVT ppx On therapeutic lovenox #Dispo Monitor on med-surg Visit type - Emergency Visit Emergency Visit: No - New Patient This patient is new to me today: No - Critical Care Critical Care patient: No ATTENDING PHYSICIAN STATEMENT I saw and evaluated the patient. I reviewed the resident's note and discussed the case with the resident. I agree with the resident's findings and plan as documented. SUBJECTIVE: OBJECTIVE: ASSESSMENT AND PLAN:
[2019-01-30] MEDS ORDERED: LIDOCAINE HCL 1%, 10 MG/ML (20ML VIAL) ONE (10:23)
[2019-01-30] MEDS ORDERED: BUPIVACAINE HCL/PF 0.5% (5 MG/ML) 30 ML VIAL IJ ONE (10:23)
[2019-01-30] MEDS ORDERED: MIDAZOLAM HCL 2 MG/2 ML SINGLE DOSE VIAL ONE (10:35)
[2019-01-30] MEDS ORDERED: PROPOFOL 20 ML ONE (10:35)
--- NOTE | 2019-01-30 11:28 | PN ---
Teaching Attending Note Name of Resident: Paulette Jeff ATTENDING PHYSICIAN STATEMENT I saw and evaluated the patient. I reviewed the resident's note and discussed the case with the resident. I agree with the resident's findings and plan as documented with exceptions below. SUBJECTIVE: Patient seen and examined. Right thigh pain improved, no new fevers, chills or concerns. OBJECTIVE: Vital Signs Period Temp Pulse Resp BP Sys/Rees Pulse Ox Last 24 Hr 97.6 F-98.9 F 67-120 20-20 101-124/58-71 Intake & Output 01/27/19 01/28/19 01/29/19 01/30/19 23:59 23:59 23:59 23:59 Intake Total 450 1520 1200 Output Total 400 900 Balance 50 620 1200 Weight 263 lb 6.4 oz General: sitting in bed, no acute distress Extremities: right thigh wound with some purulent discharge, surrounding induration/erythema with some improvement, pos warmth/tenderness, left calf tenderness Chest: CTAB, no rales or wheezing Abdomen:soft, obese, NT Home Medications Medication Instructions Recorded Enoxaparin [Lovenox -] 180 mg SQ BID 01/28/19 Active Medications Acetaminophen (Tylenol -) 650 mg PO Q4H PRN PRN Reason: PAIN LEVEL 1-5 Last Admin: 01/29/19 10:06 Dose: 650 mg Enoxaparin Sodium (Lovenox -) 120 mg SQ Q12H [facility] Last Admin: 01/30/19 09:08 Dose: 120 mg Sodium Chloride (Normal Saline -) 1,000 mls @ 75 mls/hr IV ASDIR [facility] Last Admin: 01/28/19 21:58 Dose: 75 mls/hr Vancomycin HCl 1,500 mg/ (Dextrose) 500 mls @ 250 mls/hr IVPB Q12H [facility]; Protocol Last Admin: 01/30/19 03:08 Dose: 250 mls/hr Ceftriaxone Sodium 2 gm/ (Dextrose) 100 mls @ 200 mls/hr IVPB DAILY [facility]; Protocol Last Admin: 01/30/19 09:40 Dose: 200 mls/hr Insulin Aspart (Novolog Vial Sliding Scale -) 1 vial SQ TIDAC [facility]; Protocol Last Admin: 01/30/19 06:47 Dose: Not Given Laboratory Results - last 24 hr 01/29/19 01/29/19 01/29/19 07:55 15:10 15:10 WBC RBC Hgb Hct MCV MCH MCHC RDW Plt Count MPV PT with INR 12.70 INR 1.08 Sodium Potassium Chloride Carbon Dioxide Anion Gap BUN Creatinine Est GFR (CKD-EPI)AfAm Est GFR (CKD-EPI)NonAf POC Glucometer Random Glucose Calcium Phosphorus Magnesium Direct Bilirubin 0.4 H Urine Color Urine Appearance Urine pH Ur Specific [place] Urine Protein Urine Glucose (UA) Urine Ketones Urine Blood Urine Nitrite Urine Bilirubin Urine Urobilinogen Ur Leukocyte Esterase Opiates Screen Methadone Screen Barbiturate Screen Phencyclidine Screen Ur Amphetamines Screen MDMA (Ecstasy) Screen Benzodiazepines Screen Cocaine Screen U Marijuana (THC) Screen Blood Type AB POSITIVE Antibody Screen Negative 01/29/19 01/29/19 01/29/19 15:15 15:15 17:27 WBC RBC Hgb Hct MCV MCH MCHC RDW Plt Count MPV PT with INR INR Sodium Potassium Chloride Carbon Dioxide Anion Gap BUN Creatinine Est GFR (CKD-EPI)AfAm Est GFR (CKD-EPI)NonAf POC Glucometer 176 Random Glucose Calcium Phosphorus Magnesium Direct Bilirubin Urine Color Dk yellow Urine Appearance Clear Urine pH 6.5 Ur Specific [place] 1.034 Urine Protein Trace Urine Glucose (UA) Trace Urine Ketones Negative Urine Blood Negative Urine Nitrite Negative Urine Bilirubin 1+ H Urine Urobilinogen >=8.0 e.u./dl Ur Leukocyte Esterase Negative Opiates Screen Negative Methadone Screen Negative Barbiturate Screen Negative Phencyclidine Screen Positive A* Ur Amphetamines Screen Negative MDMA (Ecstasy) Screen Negative Benzodiazepines Screen Negative Cocaine Screen Negative U Marijuana (THC) Screen Negative Blood Type Antibody Screen 01/30/19 01/30/19 01/30/19 06:30 06:30 06:45 WBC 5.4 RBC 4.41 Hgb 13.8 Hct 40.9 MCV 92.8 MCH 31.3 MCHC 33.7 RDW 13.6 Plt Count 223 MPV 8.5 PT with INR INR Sodium 138 Potassium 4.4 Chloride 104 Carbon Dioxide 25 Anion Gap 9 BUN 11.1 Creatinine 0.9 Est GFR (CKD-EPI)AfAm 118.30 Est GFR (CKD-EPI)NonAf 102.07 POC Glucometer 146 Random Glucose 139 H Calcium 8.9 Phosphorus 4.1 Magnesium 2.3 Direct Bilirubin Urine Color Urine Appearance Urine pH Ur Specific [place] Urine Protein Urine Glucose (UA) Urine Ketones Urine Blood Urine Nitrite Urine Bilirubin Urine Urobilinogen Ur Leukocyte Esterase Opiates Screen Methadone Screen Barbiturate Screen Phencyclidine Screen Ur Amphetamines Screen MDMA (Ecstasy) Screen Benzodiazepines Screen Cocaine Screen U Marijuana (THC) Screen Blood Type Antibody Screen Microbiology 01/29/19 13:00 Abscess Wound Culture - Preliminary Presumptive Mrsa (Pbp2a Pos) 01/28/19 17:08 Blood - Peripheral Venous Blood Culture - Preliminary NO GROWTH OBTAINED AFTER 24 HOURS, INCUBATION TO CONTINUE FOR 4 DAYS. 01/28/19 17:08 Blood - Peripheral Venous Blood Culture - Preliminary NO GROWTH OBTAINED AFTER 24 HOURS, INCUBATION TO CONTINUE FOR 4 DAYS. ASSESSMENT AND PLAN: 48 yom with PMhx of sarcoidosis, Prior PE, multiple DVTs s/p IVC filter, thombectomy/Thrombolysis in 2016, prior on coumadin, now on lovenox (recent non compliance) , right eye blindness (got hit with a baseball in his youth) and arthritis admitted with right thigh abscess/cellulitis and LLE DVT -Right Thigh abscess/Cellulitis s/p I&D in ED -LLE DVT (acute on chronic), suspect in the setting of non compliance -New diagnosis of DM -H/o multile DVTs s/p IVC filter, also thombectomy/thrombolysis 2016 on full dose lovenox -Sarcoidosis -Right eye blindness -Arthritis -Phencyclidine use Plan: For I&D today, will follow up Wound cx noted, presumptive MRSA On Ceftriaxone/vancomycin. ID input noted. Monitor vanco levels. Continue lovenox given his risk patient informed of the diagnosis of DM, a1c noted, start ISS, BGM. Diabetic education/counseling. Will be a good candidate for metformin on dc. Gentle hydration Drug screen noted. Dispo pending clinical improvement. Plan discussed with patient.
--- NOTE | 2019-01-30 11:39 | OP ---
Operative Note - Note: Operative Date: 01/30/19 Pre-Operative Diagnosis: abscess right thigh Operation: Incision/drainage right thigh abscess Findings: abscess/induration/cellulitis Post-Operative Diagnosis: Same as Pre-op Surgeon: Issa Lang Anesthesiologist/CUSTOMER ADVISOR SPECIALIST: Jaspreet Zavaleta Anesthesia: General Specimens Removed: c/s wound /abscess Estimated Blood Loss (mls): 5 Drains & Tubes with Location: 1/2" iodoform packing
[2019-01-30] MEDS ORDERED: ONDANSETRON 4 MG/2 ML VIAL IVPUSH PRN (11:58)
[2019-01-30] MEDS: oxyCODONE HCL 5 MG TABLET PO PRN ×2 (12:15→18:29)
[2019-01-30] MEDS ORDERED: oxyCODONE HCL 5 MG TABLET ONE (12:18)
[2019-01-30] MEDS: SODIUM CHLORIDE 1,000 ML IV SCH (12:30)
[2019-01-30] MEDS ORDERED: DOCUSATE SODIUM 100 MG CAPSULE (FP) PO PRN (13:10)
[2019-01-30] MEDS: ACETAMINOPHEN 325 MG TABLET (FP) PO PRN ×2 (14:23→22:16)
--- NOTE | 2019-01-30 15:13 | PN ---
Progress Note (short form) - Note Progress Note: s/p drainage of abscess dressing intact Vital Signs Period Temp Pulse Resp BP Sys/Rees Pulse Ox Last 24 Hr 97.3 F-98.9 F 64-120 18-23 94-118/58-76 93-98 cor-rrr lungs clear abd soft,nt ext dressing intact right thigh CBC, BMP 01/30/19 06:30 01/30/19 06:30 Microbiology 01/29/19 14:45 Nares - Right Nares MRSA Screen - Final NO MRSA ISOLATED 01/29/19 14:45 Nares - Left Nares MRSA Screen - Final NO MRSA ISOLATED 01/29/19 13:00 Abscess Gram Stain - Final 01/29/19 13:00 Abscess Wound Culture - Preliminary Presumptive Mrsa (Pbp2a Pos) 01/30/19 11:15 Thigh - Right Gram Stain - Final 01/28/19 17:08 Blood - Peripheral Venous Blood Culture - Preliminary NO GROWTH OBTAINED AFTER 24 HOURS, INCUBATION TO CONTINUE FOR 4 DAYS. 01/28/19 17:08 Blood - Peripheral Venous Blood Culture - Preliminary NO GROWTH OBTAINED AFTER 24 HOURS, INCUBATION TO CONTINUE FOR 4 DAYS. Current Medications Acetaminophen (Tylenol -) 650 mg PO Q4H PRN PRN Reason: PAIN LEVEL 1-5 Last Admin: 01/30/19 14:23 Dose: 650 mg Docusate Sodium (Colace -) 100 mg PO BID PRN PRN Reason: CONSTIPATION Enoxaparin Sodium (Lovenox -) 120 mg SQ BID [facility] Fentanyl (Sublimaze Injection -) 25 mcg IVPUSH [id number] PRN PRN Reason: PAIN-PACU ORDER X 4 DOSES ONLY Stop: 01/31/19 11:57 Ceftriaxone Sodium 2 gm/ (Dextrose) 100 mls @ 200 mls/hr IVPB DAILY [facility]; Protocol Sodium Chloride (Normal Saline -) 1,000 mls @ 75 mls/hr IV ASDIR [facility] Last Admin: 01/30/19 12:30 Dose: 0 mls Vancomycin HCl 1,500 mg/ (Dextrose) 500 mls @ 250 mls/hr IVPB 0400,1600 [facility]; Protocol Insulin Aspart (Novolog Vial Sliding Scale -) 1 vial SQ TIDAC [facility]; Protocol Ondansetron HCl (Zofran Injection) 4 mg IVPUSH Q6H PRN PRN Reason: NAUSEA AND/OR VOMITING Oxycodone HCl (Roxicodone -) 5 mg PO Q6H PRN PRN Reason: PAIN LEVEL 6-10 imp/reccd right thigh abscess MRSA s/p operative debridement d/c ceftriaxone continue vancomycin, check levels contact isolation recurrent DVT LLE-a/c per primary service history of sarcoid penicillin allergy Problem List - Problems (1) Cellulitis and abscess of right lower extremity Code(s): L03.115 - CELLULITIS OF RIGHT LOWER LIMB; L02.415 - CUTANEOUS ABSCESS OF RIGHT LOWER LIMB (2) DVT (deep venous thrombosis) Code(s): I82.409 - ACUTE EMBOLISM AND THOMBOS UNSP DEEP VN UNSP LOWER EXTREMITY Qualifiers: DVT location: lower extremity Affected thrombotic vein of extremity: femoral Chronicity: unspecified Laterality: left Qualified Code(s): I82.412 - Acute embolism and thrombosis of left femoral vein (3) Penicillin allergy Code(s): Z88.0 - ALLERGY STATUS TO PENICILLIN
[2019-01-30] MEDS ORDERED: ENOXAPARIN NA (PORCINE) 120 MG/0.8 ML DISP.SYRIN SQ SCH (22:00)
[2019-01-31] MEDS: oxyCODONE HCL 5 MG TABLET PO PRN ×3 (03:10→18:21)
[2019-01-31] MEDS: VANCOMYCIN HCL 1,500 MG in DEXTROSE 5%-WATER - 500 ML IVPB SCH (04:05)
[2019-01-31] MEDS: INSULIN SLIDING SCALE (NOVOLOG) 1 VIAL SQ SCH ×3 (06:10→16:30)
[2019-01-31 08:39] LABS: BASO % 0.5 % (0-2.0); EOS % 0.9 % (0-4.5); HEMATOCRIT 36.2 % (35.4-49); HEMOGLOBIN 12.5 GM/dL (11.7-16.9); LYMPH % 25.1 % (8-40); MCH 31.7 pg (25.7-33.7); MCHC 34.4 g/dl (32.0-35.9); MEAN CELL VOLUME 92.1 fl (80-96); MEAN PLT VOLUME 8.5 fl (7.5-11.1); MONO % 9.3 % (3.8-10.2); NEUT % 64.2 % (42.8-82.8); PLATELET COUNT 247 K/MM3 (134-434); RBC 3.93 M/mm3 (4.00-5.60); RDW 13.3 % (11.9-15.9); WHITE BLOOD COUNT 8.8 K/mm3 (4.0-10.0)
[2019-01-31 08:59] LABS: BLOOD UREA NITROGEN 16.2 mg/dL (7-18); CALCIUM 8.3 mg/dL (8.5-10.1); CREATININE 0.9 mg/dL (0.55-1.3); POTASSIUM 4.7 mmol/L (3.5-5.1)
[2019-01-31] MEDS ORDERED: CEFTRIAXONE 2 GM in DEXTROSE 5%-WATER 100 ML IVPB SCH (10:00)
--- NOTE | 2019-01-31 11:43 | PN ---
Progress Note (short form) - Note Progress Note: Anesthessia post op note, POD#1 S/P I&D right thigh abscess under GA. VSS. AAOX3. No apparent post anesthesia complications.
[2019-01-31] MEDS: SODIUM CHLORIDE 1,000 ML IV SCH (11:55)
--- NOTE | 2019-01-31 12:31 | PN ---
Progress Note (short form) - Note Progress Note: Attending Surgeon POD#1 c/o incisional pain VSS AF wound- dressing changed; no drainage; some bleeding o/w negative. IMP: stable PLAN: Dressig changed ; do not change for 24 hours; hold anticoagulation. Issa Lang MD FACS
[2019-01-31] MEDS: ACETAMINOPHEN 325 MG TABLET (FP) PO PRN (13:13)
--- NOTE | 2019-01-31 13:50 | PN ---
Physical Exam: SUBJECTIVE: Patient seen and examined, right thigh pain, no further bleeding, no fevers, chills or concerns otherwise. OBJECTIVE: Vital Signs Period Temp Pulse Resp BP Sys/Rees Pulse Ox Last 24 Hr 97.2 F-98.6 F 63-96 18-20 113-139/68-77 98-99 Intake & Output 01/28/19 01/29/19 01/30/19 01/31/19 23:59 23:59 23:59 23:59 Intake Total 450 1520 2700 2610 Output Total 400 205 532 3838 Balance 50 620 1994 101 Weight 263 lb 6.4 oz GENERAL: sitting in bed in no acute distress Neck: soft, supple HEENT: PERRL, EOMI CVS:S1S2 regular Chest: CTAb, no rales or wheezing Abdomen;Soft, obese, NT Extremities: right thigh packing with dressing, dried bleed, no active bleed, improved surrounding erythema/swelling/tenderness, LLE swelling unchanged, pos DP pulses Psych: sleepy but arousable Laboratory Results - last 24 hr 01/30/19 01/31/19 01/31/19 16:53 06:08 08:00 WBC 8.8 RBC 3.93 L Hgb 12.5 Hct 36.2 MCV 92.1 MCH 31.7 MCHC 34.4 RDW 13.3 Plt Count 247 MPV 8.5 Absolute Neuts (auto) 5.6 Neutrophils % 64.2 Lymphocytes % 25.1 Monocytes % 9.3 Eosinophils % 0.9 D Basophils % 0.5 Nucleated RBC % 0 Sodium Potassium Chloride Carbon Dioxide Anion Gap BUN Creatinine Est GFR (CKD-EPI)AfAm Est GFR (CKD-EPI)NonAf POC Glucometer 263 289 Random Glucose Calcium 01/31/19 01/31/19 08:00 12:52 WBC RBC Hgb Hct MCV MCH MCHC RDW Plt Count MPV Absolute Neuts (auto) Neutrophils % Lymphocytes % Monocytes % Eosinophils % Basophils % Nucleated RBC % Sodium 135 L Potassium 4.7 Chloride 103 Carbon Dioxide 26 Anion Gap 6 L BUN 16.2 Creatinine 0.9 Est GFR (CKD-EPI)AfAm 118.30 Est GFR (CKD-EPI)NonAf 102.07 POC Glucometer 311 Random Glucose 210 H Calcium 8.3 L Active Medications Generic Name Dose Route Start Last Admin Trade Name Freq PRN Reason Stop Dose Admin Acetaminophen 650 mg 01/30/19 11:55 01/31/19 13:13 Tylenol - PO 650 mg Q4H PRN Administration PAIN LEVEL 1-5 Docusate Sodium 100 mg 01/30/19 13:10 Colace - PO BID PRN CONSTIPATION Enoxaparin Sodium 120 mg 01/30/19 22:00 01/30/19 22:15 Lovenox - SQ 120 mg BID [facility] Administration Sodium Chloride 1,000 mls @ 75 mls/hr 01/30/19 11:55 01/31/19 11:55 Normal Saline - IV Not Given ASDIR [facility] Vancomycin HCl 1,500 mg/ 500 mls @ 250 mls/hr 01/30/19 16:00 01/31/19 04:05 Dextrose IVPB 250 mls/hr 0400,1600 [facility] Administration Protocol Insulin Aspart 1 vial 01/30/19 16:30 01/31/19 13:07 Novolog Vial Sliding Scale - SQ Not Given TIDAC [facility] Protocol Ondansetron HCl 4 mg 01/30/19 11:58 Zofran Injection IVPUSH Q6H PRN NAUSEA AND/OR VOMITING Oxycodone HCl 5 mg 01/30/19 13:10 01/31/19 10:37 Roxicodone - PO 5 mg Q6H PRN Administration PAIN LEVEL 6-10 Microbiology 01/29/19 13:00 Abscess Gram Stain - Final 01/29/19 13:00 Abscess Wound Culture - Final S Aureus 01/30/19 11:15 Thigh - Right Gram Stain - Final 01/30/19 11:15 Thigh - Right Wound Culture - Preliminary Presumptive Mrsa (Pbp2a Pos) 01/28/19 17:08 Blood - Peripheral Venous Blood Culture - Preliminary NO GROWTH OBTAINED AFTER 48 HOURS, INCUBATION TO CONTINUE FOR 3 DAYS. 01/28/19 17:08 Blood - Peripheral Venous Blood Culture - Preliminary NO GROWTH OBTAINED AFTER 48 HOURS, INCUBATION TO CONTINUE FOR 3 DAYS. 01/29/19 14:45 Nares - Right Nares MRSA Screen - Final NO MRSA ISOLATED 01/29/19 14:45 Nares - Left Nares MRSA Screen - Final NO MRSA ISOLATED ASSESSMENT/PLAN: 48 yom with PMhx of sarcoidosis, Prior PE, multiple DVTs s/p IVC filter, thombectomy/Thrombolysis in 2016, prior on coumadin, now on lovenox (recent non compliance) , right eye blindness (got hit with a baseball in his youth) and arthritis admitted with right thigh abscess/cellulitis and LLE DVT -Right Thigh abscess/Cellulitis s/p I&D in ED -Right thigh wound bleeding s/p Pressure/hemostasis -LLE DVT (acute on chronic), suspect in the setting of non compliance -New diagnosis of DM -H/o multile DVTs s/p IVC filter, also thombectomy/thrombolysis 2016 on full dose lovenox -Sarcoidosis -Right eye blindness -Arthritis -Phencyclidine use Plan: Overnight events noted. Bleeding from right thigh, controlled by prolonged pressure. H/h stable Dr. Lang's input noted dressing changed. Will need to hold lovenox, resume in 24 hours if no concerns. Wound cx noted. Vancomycin. Off ceftriaxone. ID input noted. vanco trough today. Blood sugars rising, patient aware of new diagnosis of DM Change vancomycin to NS from D5w, discussed with pharmacy. Diabetic education/counseling. Will be a good candidate for metformin on dc. Gentle hydration Drug screen noted. Dispo pending clinical improvement. Plan discussed with patient and nursing, care co-ordinated with ID and surgery. Visit type - Emergency Visit Emergency Visit: Yes ED Registration Date: 01/28/19 Care time: The patient presented to the Emergency Department on the above date and was hospitalized for further evaluation of their emergent condition. - New Patient This patient is new to me today: No - Critical Care Critical Care patient: No - Discharge Referral Referred to [facility] Med P.C.: No
[2019-01-31] MEDS ORDERED: VANCOMYCIN HCL 1,500 MG in SODIUM CHLORIDE 500 ML IVPB SCH (13:53)
--- NOTE | 2019-01-31 13:59 | PN ---
Progress Note (short form) - Note Progress Note: s/p drainage of abscess dressing changed by surgery today Vital Signs Period Temp Pulse Resp BP Sys/Rees Pulse Ox Last 24 Hr 97.2 F-98.6 F 63-96 18-20 113-139/68-77 98-99 cor-rrr lungs clear dressing intact thigh CBC, BMP 01/31/19 08:00 01/31/19 08:00 Microbiology 01/29/19 13:00 Abscess Gram Stain - Final 01/29/19 13:00 Abscess Wound Culture - Final S Aureus 01/30/19 11:15 Thigh - Right Gram Stain - Final 01/30/19 11:15 Thigh - Right Wound Culture - Preliminary Presumptive Mrsa (Pbp2a Pos) 01/28/19 17:08 Blood - Peripheral Venous Blood Culture - Preliminary NO GROWTH OBTAINED AFTER 48 HOURS, INCUBATION TO CONTINUE FOR 3 DAYS. 01/28/19 17:08 Blood - Peripheral Venous Blood Culture - Preliminary NO GROWTH OBTAINED AFTER 48 HOURS, INCUBATION TO CONTINUE FOR 3 DAYS. 01/29/19 14:45 Nares - Right Nares MRSA Screen - Final NO MRSA ISOLATED 01/29/19 14:45 Nares - Left Nares MRSA Screen - Final NO MRSA ISOLATED Current Medications Acetaminophen (Tylenol -) 650 mg PO Q4H PRN PRN Reason: PAIN LEVEL 1-5 Last Admin: 01/31/19 13:13 Dose: 650 mg Docusate Sodium (Colace -) 100 mg PO BID PRN PRN Reason: CONSTIPATION Enoxaparin Sodium (Lovenox -) 120 mg SQ BID [facility] Last Admin: 01/30/19 22:15 Dose: 120 mg Sodium Chloride (Normal Saline -) 1,000 mls @ 75 mls/hr IV ASDIR [facility] Last Admin: 01/31/19 11:55 Dose: Not Given Vancomycin HCl 1,500 mg/ (Sodium Chloride) 500 mls @ 250 mls/hr IVPB 0400,1600 [facility]; Protocol Insulin Aspart (Novolog Vial Sliding Scale -) 1 vial SQ TIDAC [facility]; Protocol Last Admin: 01/31/19 13:07 Dose: Not Given Ondansetron HCl (Zofran Injection) 4 mg IVPUSH Q6H PRN PRN Reason: NAUSEA AND/OR VOMITING Oxycodone HCl (Roxicodone -) 5 mg PO Q6H PRN PRN Reason: PAIN LEVEL 6-10 Last Admin: 01/31/19 10:37 Dose: 5 mg imp/reccd right thigh abscess MRSA s/p operative debridement culture sensitive to clindamycin, will switch to clindamycin today continue contact isolation recurrent DVT LLE-a/c per primary service history of sarcoid penicillin allergy Problem List - Problems (1) Cellulitis and abscess of right lower extremity Code(s): L03.115 - CELLULITIS OF RIGHT LOWER LIMB; L02.415 - CUTANEOUS ABSCESS OF RIGHT LOWER LIMB (2) DVT (deep venous thrombosis) Code(s): I82.409 - ACUTE EMBOLISM AND THOMBOS UNSP DEEP VN UNSP LOWER EXTREMITY Qualifiers: DVT location: lower extremity Affected thrombotic vein of extremity: femoral Chronicity: unspecified Laterality: left Qualified Code(s): I82.412 - Acute embolism and thrombosis of left femoral vein (3) Penicillin allergy Code(s): Z88.0 - ALLERGY STATUS TO PENICILLIN
[2019-01-31] MEDS: CLINDAMYCIN 600MG PREMIX IVPB 600 MG/50 ML BAG IVPB SCH ×2 (14:53→18:18)
[2019-01-31 15:32] VITALS: BMI 35.6
[2019-02-01] MEDS: oxyCODONE HCL 5 MG TABLET PO PRN ×2 (01:31→15:44)
[2019-02-01] MEDS: CLINDAMYCIN 600MG PREMIX IVPB 600 MG/50 ML BAG IVPB SCH ×3 (01:33→18:00)
[2019-02-01] MEDS: INSULIN SLIDING SCALE (NOVOLOG) 1 VIAL SQ SCH ×3 (07:17→18:00)
[2019-02-01 07:58] LABS: EOS % 2.7 % (0-4.5); HEMATOCRIT 32.9 % (35.4-49); HEMOGLOBIN 11.5 GM/dL (11.7-16.9); LYMPH % 51.5 % (8-40); MCH 31.9 pg (25.7-33.7); MCHC 34.9 g/dl (32.0-35.9); MEAN CELL VOLUME 91.4 fl (80-96); MEAN PLT VOLUME 7.8 fl (7.5-11.1); MONO % 7.4 % (3.8-10.2); NEUT % 37.4 % (42.8-82.8); PLATELET COUNT 261 K/MM3 (134-434); RDW 13.4 % (11.9-15.9); WHITE BLOOD COUNT 5.8 K/mm3 (4.0-10.0)
--- NOTE | 2019-02-01 09:46 | PN ---
Physical Exam: SUBJECTIVE: Patient seen and examined. No acute events overnight. Pt denies fevers or chills. Pain is controlled. OBJECTIVE: Vital Signs Period Temp Pulse Resp BP Sys/Rees Pulse Ox Last 24 Hr 97.5 F-98.1 F 67-80 18-20 93-105/52-59 99 GENERAL: The patient is awake, alert, and fully oriented, in no acute distress. HEAD: Normal with no signs of trauma. LUNGS: Breath sounds equal, clear to auscultation bilaterally, no wheezes, no crackles, no accessory muscle use. HEART: Regular rate and rhythm, S1, S2 without murmur, rub or gallop. ABDOMEN: Soft, nontender, nondistended, normoactive bowel sounds, no guarding, no rebound, no hepatosplenomegaly, no masses. Negative Saavedra's sign. EXTREMITIES: 2+ pulses, warm L>R, well-perfused, trace edema L>R. L calf tenderness improved. NEUROLOGICAL: Cranial nerves II through XII grossly intact. Normal speech, gait not observed. PSYCH: Normal mood, normal affect. SKIN: Warm, dry, normal turgor, right thigh with pressure dressing, no active bleeding. Swelling and erythema improving. No edema. Laboratory Results - last 24 hr 01/31/19 01/31/19 02/01/19 12:52 16:18 07:10 WBC RBC Hgb Hct MCV MCH MCHC RDW Plt Count MPV Absolute Neuts (auto) Neutrophils % Lymphocytes % Monocytes % Eosinophils % Basophils % Nucleated RBC % POC Glucometer 311 345 122 02/01/19 07:30 WBC 5.8 RBC 3.60 L Hgb 11.5 L Hct 32.9 L MCV 91.4 MCH 31.9 MCHC 34.9 RDW 13.4 Plt Count 261 MPV 7.8 Absolute Neuts (auto) 2.2 Neutrophils % 37.4 L D Lymphocytes % 51.5 H D Monocytes % 7.4 Eosinophils % 2.7 D Basophils % 1.0 Nucleated RBC % 0 POC Glucometer Active Medications Acetaminophen (Tylenol -) 650 mg PO Q4H PRN PRN Reason: PAIN LEVEL 1-5 Last Admin: 01/31/19 13:13 Dose: 650 mg Docusate Sodium (Colace -) 100 mg PO BID PRN PRN Reason: CONSTIPATION Enoxaparin Sodium (Lovenox -) 120 mg SQ BID [facility] Last Admin: 01/30/19 22:15 Dose: 120 mg Sodium Chloride (Normal Saline -) 1,000 mls @ 75 mls/hr IV ASDIR [facility] Last Admin: 01/31/19 11:55 Dose: Not Given Clindamycin Phosphate (Cleocin 600 Mg Premix Ivpb -) 600 mg in 50 mls @ 100 mls /hr IVPB Q8H-IV [facility]; Protocol Last Admin: 02/01/19 01:33 Dose: 100 mls/hr Insulin Aspart (Novolog Vial Sliding Scale -) 1 vial SQ TIDAC [facility]; Protocol Last Admin: 02/01/19 07:17 Dose: Not Given Lactobacillus Acidophilus (Bacid -) 1 tab PO DAILY [facility] Ondansetron HCl (Zofran Injection) 4 mg IVPUSH Q6H PRN PRN Reason: NAUSEA AND/OR VOMITING Oxycodone HCl (Roxicodone -) 5 mg PO Q6H PRN PRN Reason: PAIN LEVEL 6-10 Last Admin: 02/01/19 01:31 Dose: 5 mg ASSESSMENT/PLAN: Patient is a 48 year old male with PMH sarcoidosis, DVTs, right eye blindness, and arthritis presents with R thigh redness, swelling and purulent drainage. Pt was admitted for right thigh cellulitis complicated with abscess s/p drain and new DVT on LLE. #RLE cellulitis w/abscess I&D POD#2 (Dr. Lang) Wound now wrapped in pressure dressing (episode of acute bleeding on Saturday evening). H&H stable, will monitor Wound cx sensitive to clindamycin D/c vanc/ceftriaxone and cont clinda 600mg Q8H (Day 5 of abx) MRSA screen: positive (preliminary reading) ESR: 44 CRP: 8.6, monitor ID consulted (Dr. Issa) following, input appreciated Fall precautions Tylenol 650mg Q4H prn for pain PT eval #CVT LLE mid/distal femoral vein and popliteal vein Duplex US: extensive LLE DVT, no RLE DVT Pt has hx of recurrent DVTs, on home lovenox. Non-compliant with medication. Cont Lovenox 120 sq BID #Newly diagnosed diabetes Pt denies hx of diabetes Hgb A1C: 7.8% Initiate SSI TIDAC BGM ACHS Diabetic and nutrition counseling. Pt will be good candidate for metformin on d/c #Transaminitis T-bili: 2.1, ALP: 164, D-bili: 0.4 RUQ US: cholelithiasis, no evidence of cholecystitis, no biliary tract distension. 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 Consider outpatient appt on d/ c #FEN IV NS @ 75ml/hr Diabetic diet #DVT ppx On therapeutic lovenox #Dispo Monitor on med-surg Visit type - Emergency Visit Emergency Visit: No - New Patient This patient is new to me today: No - Critical Care Critical Care patient: No ATTENDING PHYSICIAN STATEMENT I saw and evaluated the patient. I reviewed the resident's note and discussed the case with the resident. I agree with the resident's findings and plan as documented. SUBJECTIVE: OBJECTIVE: ASSESSMENT AND PLAN:
[2019-02-01] MEDS ORDERED: PT OWN MED DRAWER 7, Y5N ONE ×2 (09:53→22:25)
[2019-02-01] MEDS: LACTOBACILLUS ACIDOPHILUS 1 TABLET PO SCH (09:59)
--- NOTE | 2019-02-01 10:51 | PN ---
Teaching Attending Note Name of Resident: Paulette Jeff ATTENDING PHYSICIAN STATEMENT I saw and evaluated the patient. I reviewed the resident's note and discussed the case with the resident. I agree with the resident's findings and plan as documented with exceptions below. SUBJECTIVE: Patient seen and examined. Right thigh pain but controlled, no new complaints. OBJECTIVE: Vital Signs Period Temp Pulse Resp BP Sys/Rees Pulse Ox Last 24 Hr 97.5 F-98.1 F 67-80 18-20 91-105/52-59 99 Intake & Output 01/29/19 01/30/19 01/31/19 02/01/19 23:59 23:59 23:59 23:59 Intake Total 1520 2700 3285 900 Output Total 027 363 2109 Balance 620 1995 685 900 Weight 263 lb General: sitting in bed, no acute distress chest: CTAB, no rales or wheezing Abdomen:soft, obese, NT Extremities: right thigh dressing with packing and MARY bandage, no active bleed or surrounding erythema/tenderness/swelling noted, improved exam, pos pulses, Home Medications Medication Instructions Recorded Enoxaparin [Lovenox -] 180 mg SQ BID 01/28/19 Active Medications Acetaminophen (Tylenol -) 650 mg PO Q4H PRN PRN Reason: PAIN LEVEL 1-5 Last Admin: 01/31/19 13:13 Dose: 650 mg Docusate Sodium (Colace -) 100 mg PO BID PRN PRN Reason: CONSTIPATION Enoxaparin Sodium (Lovenox -) 120 mg SQ BID [facility] Last Admin: 01/30/19 22:15 Dose: 120 mg Sodium Chloride (Normal Saline -) 1,000 mls @ 75 mls/hr IV ASDIR [facility] Last Admin: 01/31/19 11:55 Dose: Not Given Clindamycin Phosphate (Cleocin 600 Mg Premix Ivpb -) 600 mg in 50 mls @ 100 mls /hr IVPB Q8H-IV [facility]; Protocol Last Admin: 02/01/19 09:59 Dose: 100 mls/hr Insulin Aspart (Novolog Vial Sliding Scale -) 1 vial SQ TIDAC [facility]; Protocol Last Admin: 02/01/19 07:17 Dose: Not Given Lactobacillus Acidophilus (Bacid -) 1 tab PO DAILY [facility] Last Admin: 02/01/19 09:59 Dose: Not Given Ondansetron HCl (Zofran Injection) 4 mg IVPUSH Q6H PRN PRN Reason: NAUSEA AND/OR VOMITING Oxycodone HCl (Roxicodone -) 5 mg PO Q6H PRN PRN Reason: PAIN LEVEL 6-10 Last Admin: 02/01/19 01:31 Dose: 5 mg Laboratory Results - last 24 hr 01/31/19 01/31/19 02/01/19 12:52 16:18 07:10 WBC RBC Hgb Hct MCV MCH MCHC RDW Plt Count MPV Absolute Neuts (auto) Neutrophils % Lymphocytes % Monocytes % Eosinophils % Basophils % Nucleated RBC % POC Glucometer 311 345 122 02/01/19 07:30 WBC 5.8 RBC 3.60 L Hgb 11.5 L Hct 32.9 L MCV 91.4 MCH 31.9 MCHC 34.9 RDW 13.4 Plt Count 261 MPV 7.8 Absolute Neuts (auto) 2.2 Neutrophils % 37.4 L D Lymphocytes % 51.5 H D Monocytes % 7.4 Eosinophils % 2.7 D Basophils % 1.0 Nucleated RBC % 0 POC Glucometer Microbiology 01/30/19 11:15 Thigh - Right Gram Stain - Final 01/30/19 11:15 Thigh - Right Wound Culture - Preliminary Mr S Aureus 01/28/19 17:08 Blood - Peripheral Venous Blood Culture - Preliminary NO GROWTH OBTAINED AFTER 72 HOURS, INCUBATION TO CONTINUE FOR 2 DAYS. 01/28/19 17:08 Blood - Peripheral Venous Blood Culture - Preliminary NO GROWTH OBTAINED AFTER 72 HOURS, INCUBATION TO CONTINUE FOR 2 DAYS. 01/29/19 13:00 Abscess Gram Stain - Final 01/29/19 13:00 Abscess Wound Culture - Final Mr S Aureus 01/29/19 14:45 Nares - Right Nares MRSA Screen - Final NO MRSA ISOLATED 01/29/19 14:45 Nares - Left Nares MRSA Screen - Final NO MRSA ISOLATED ASSESSMENT AND PLAN: 48 yom with PMhx of sarcoidosis, Prior PE, multiple DVTs s/p IVC filter, thombectomy/Thrombolysis in 2016, prior on coumadin, now on lovenox (recent non compliance) , right eye blindness (got hit with a baseball in his youth) and arthritis admitted with right thigh abscess/cellulitis and LLE DVT -Right Thigh abscess/Cellulitis s/p I&D in ED -Right thigh wound bleeding s/p Pressure/hemostasis -LLE DVT (acute on chronic), suspect in the setting of non compliance -Acute blood loss anemia -New diagnosis of DM -H/o multile DVTs s/p IVC filter, also thombectomy/thrombolysis 2015 on full dose lovenox -Sarcoidosis -Right eye blindness -Arthritis -Phencyclidine use Plan: No further bleed, Monitor h/h. Resume Lovenox Surgery input noted, Wound cx noted. ID input noted, Vancomycin d/corina. Clindamycin, discuss with ID about duration Blood sugars improved after d/corina vanco (in D5w). ISS Diabetic education/counseling. Will be a good candidate for metformin on dc. Gentle hydration Drug screen noted. Dispo in 24 hours with outpatient wound care, PO abx and surgery follow u. Plan discussed with patient and nursing in detail, all questions answered.
[2019-02-01] MEDS ORDERED: SODIUM CHLORIDE 250 ML IV STA (11:02)
[2019-02-01] MEDS ORDERED: ENOXAPARIN NA (PORCINE) 120 MG/0.8 ML DISP.SYRIN SQ SCH (11:15)
[2019-02-01] MEDS ORDERED: ENOXAPARIN NA (PORCINE) 120 MG/0.8 ML DISP.SYRIN SQ ONE (11:30)
[2019-02-01] MEDS: SODIUM CHLORIDE 1,000 ML IV SCH ×2 (13:38)
[2019-02-01] MEDS: ACETAMINOPHEN 325 MG TABLET (FP) PO PRN (20:02)
[2019-02-01] MEDS: ENOXAPARIN NA (PORCINE) 120 MG/0.8 ML DISP.SYRIN SQ SCH (22:27)
[2019-02-02] MEDS ORDERED: PT OWN MED DRAWER 7, Y5N ONE (02:43)
[2019-02-02] MEDS: CLINDAMYCIN 600MG PREMIX IVPB 600 MG/50 ML BAG IVPB SCH ×2 (02:46→09:43)
[2019-02-02] MEDS: INSULIN SLIDING SCALE (NOVOLOG) 1 VIAL SQ SCH ×3 (07:07→16:30)
[2019-02-02] MEDS: SODIUM CHLORIDE 1,000 ML IV SCH ×2 (07:07→11:55)
[2019-02-02 08:28] LABS: HEMATOCRIT 33.5 % (35.4-49); HEMOGLOBIN 11.3 GM/dL (11.7-16.9); MCH 31.4 pg (25.7-33.7); MCHC 33.8 g/dl (32.0-35.9); MEAN CELL VOLUME 93.1 fl (80-96); MEAN PLT VOLUME 8.4 fl (7.5-11.1); PLATELET COUNT 277 K/MM3 (134-434); RDW 13.7 % (11.9-15.9); WHITE BLOOD COUNT 5.9 K/mm3 (4.0-10.0)
[2019-02-02 08:50] LABS: BLOOD UREA NITROGEN 15.3 mg/dL (7-18); CALCIUM 8.8 mg/dL (8.5-10.1); CREATININE 0.9 mg/dL (0.55-1.3); POTASSIUM 4.5 mmol/L (3.5-5.1)
--- NOTE | 2019-02-02 09:37 | PN ---
Progress Note (short form) - Note Progress Note: 48yo M s/p RLE I&D, pt seen and examined at bedside. Pt states RLE pain is improved. Pt denies fever, chills, n/v. Last Vital Signs Temp Pulse Resp BP Pulse Ox 97.6 F 52 L 18 100/60 98 02/02/19 05:00 02/02/19 05:00 02/02/19 05:00 02/02/19 05:00 02/01/19 21:00 CBC, BMP 02/02/19 07:25 02/02/19 07:25 PE: Gen: a&O X3 Resp: breathing comfortably RLE: Open wound inner thigh, clean, serosanguinous drainage. Problem List - Problems (1) Cellulitis and abscess of right lower extremity Assessment/Plan: Plan -pt appears to be doing well, is cleared from surgical standpoint. -pt will need VNS or wound care training for daily wet to dry dressing changes. -pt follow up with Dr. Lang in office in either this week or next week depending on discharge. -abx as per med/ID Pt discussed with Dr. Lang who agrees with plan Code(s): L03.115 - CELLULITIS OF RIGHT LOWER LIMB; L02.415 - CUTANEOUS ABSCESS OF RIGHT LOWER LIMB
[2019-02-02] MEDS: LACTOBACILLUS ACIDOPHILUS 1 TABLET PO SCH (09:43)
[2019-02-02] MEDS: ENOXAPARIN NA (PORCINE) 120 MG/0.8 ML DISP.SYRIN SQ SCH (09:43)
--- NOTE | 2019-02-02 13:11 | PN ---
Progress Note (short form) - Note Progress Note: s/p drainage of abscess 01/30 Vital Signs Period Temp Pulse Resp BP Sys/Rees Pulse Ox Last 24 Hr 97.6 F-98.7 F 52-94 18-18 99-112/56-72 98-98 cor-rrr lungs clear abd soft,nt thigh wound packed, minimal erythema/induration ext no edema CBC, BMP 02/02/19 07:25 02/02/19 07:25 Microbiology 01/28/19 17:08 Blood - Peripheral Venous Blood Culture - Preliminary NO GROWTH OBTAINED AFTER 96 HOURS, INCUBATION TO CONTINUE FOR 1 DAYS. 01/28/19 17:08 Blood - Peripheral Venous Blood Culture - Preliminary NO GROWTH OBTAINED AFTER 96 HOURS, INCUBATION TO CONTINUE FOR 1 DAYS. 01/30/19 11:15 Thigh - Right Gram Stain - Final 01/30/19 11:15 Thigh - Right Wound Culture - Final S Aureus 01/29/19 13:00 Abscess Gram Stain - Final 01/29/19 13:00 Abscess Wound Culture - Final S Aureus 01/29/19 14:45 Nares - Right Nares MRSA Screen - Final NO MRSA ISOLATED 01/29/19 14:45 Nares - Left Nares MRSA Screen - Final NO MRSA ISOLATED Current Medications Acetaminophen (Tylenol -) 650 mg PO Q4H PRN PRN Reason: PAIN LEVEL 1-5 Last Admin: 02/01/19 20:02 Dose: 650 mg Docusate Sodium (Colace -) 100 mg PO BID PRN PRN Reason: CONSTIPATION Enoxaparin Sodium (Lovenox -) 120 mg SQ BID [facility] Last Admin: 02/02/19 09:43 Dose: 120 mg Sodium Chloride (Normal Saline -) 1,000 mls @ 75 mls/hr IV ASDIR [facility] Last Admin: 02/02/19 07:07 Dose: 75 mls/hr Clindamycin Phosphate (Cleocin 600 Mg Premix Ivpb -) 600 mg in 50 mls @ 100 mls /hr IVPB Q8H-IV [facility]; Protocol Last Admin: 02/02/19 09:43 Dose: 100 mls/hr Insulin Aspart (Novolog Vial Sliding Scale -) 1 vial SQ TIDAC [facility]; Protocol Last Admin: 02/02/19 11:38 Dose: 6 units Lactobacillus Acidophilus (Bacid -) 1 tab PO DAILY [facility] Last Admin: 02/02/19 09:43 Dose: Not Given Ondansetron HCl (Zofran Injection) 4 mg IVPUSH Q6H PRN PRN Reason: NAUSEA AND/OR VOMITING imp/reccd right thigh abscess MRSA s/p operative debridement can switch to po clindamycin 300 mg tid for one week recurrent DVT LLE-a/c per primary service history of sarcoid penicillin allergy please call back if needed Problem List - Problems (1) Cellulitis and abscess of right lower extremity Code(s): L03.115 - CELLULITIS OF RIGHT LOWER LIMB; L02.415 - CUTANEOUS ABSCESS OF RIGHT LOWER LIMB (2) DVT (deep venous thrombosis) Code(s): I82.409 - ACUTE EMBOLISM AND THOMBOS UNSP DEEP VN UNSP LOWER EXTREMITY Qualifiers: DVT location: lower extremity Affected thrombotic vein of extremity: femoral Chronicity: unspecified Laterality: left Qualified Code(s): I82.412 - Acute embolism and thrombosis of left femoral vein (3) Penicillin allergy Code(s): Z88.0 - ALLERGY STATUS TO PENICILLIN
--- NOTE | 2019-02-02 14:50 | PN ---
Teaching Attending Note Name of Resident: Phoebe Skinner ATTENDING PHYSICIAN STATEMENT I saw and evaluated the patient. I reviewed the resident's note and discussed the case with the resident. I agree with the resident's findings and plan as documented with exceptions below. SUBJECTIVE: Patient seen and examined. No new fevers, chills or complaints. OBJECTIVE: Vital Signs Period Temp Pulse Resp BP Sys/Rees Pulse Ox Last 24 Hr 97.6 F-98.5 F 52-94 18-18 99-112/60-72 98-98 Intake & Output 01/30/19 01/31/19 02/01/19 02/02/19 23:59 23:59 23:59 23:59 Intake Total 2700 3285 2250 1850 Output Total 705 2600 1300 1800 Balance 1994 685 950 50 Weight 263 lb General: sitting in bed, no acute distress chest: CTAB, no rales or wheezing Abdomen:soft, NT Extremities: right thigh wound, with superficial packing, gauze and wrap, no surrounding swelling or erythema noted, markedly improved induration, no bleed discharge or foul smell Home Medications Medication Instructions Recorded Acetaminophen [Tylenol .Regular 650 mg PO Q4H PRN tablet 02/02/19 Strength -] Clindamycin [Cleocin -] 300 mg PO TID #21 capsule 02/02/19 Enoxaparin [Lovenox -] 120 mg SQ BID 30 Days #60 02/02/19 disp.syrin Lactobacillus Acidophilus [Bacid -] 1 tab PO DAILY #7 tab 02/02/19 Lancets 1 each MC DAILY #30 each 02/02/19 Miscellaneous Medical Supply 1 each .ROUTE ASDIR #1 kit 02/02/19 [Glucometer Device] Miscellaneous Medical Supply 1 each .ROUTE ASDIR #1 box 02/02/19 [Glucometer Test Strips #50] metFORMIN HCL [Metformin HCl] 500 mg PO BID #60 tablet 02/02/19 Active Medications Acetaminophen (Tylenol -) 650 mg PO Q4H PRN PRN Reason: PAIN LEVEL 1-5 Last Admin: 02/01/19 20:02 Dose: 650 mg Docusate Sodium (Colace -) 100 mg PO BID PRN PRN Reason: CONSTIPATION Enoxaparin Sodium (Lovenox -) 120 mg SQ BID [facility] Last Admin: 02/02/19 09:43 Dose: 120 mg Sodium Chloride (Normal Saline -) 1,000 mls @ 75 mls/hr IV ASDIR [facility] Last Admin: 02/02/19 11:55 Dose: Not Given Clindamycin Phosphate (Cleocin 600 Mg Premix Ivpb -) 600 mg in 50 mls @ 100 mls /hr IVPB Q8H-IV [facility]; Protocol Last Admin: 02/02/19 09:43 Dose: 100 mls/hr Insulin Aspart (Novolog Vial Sliding Scale -) 1 vial SQ TIDAC [facility]; Protocol Last Admin: 02/02/19 11:38 Dose: 6 units Lactobacillus Acidophilus (Bacid -) 1 tab PO DAILY [facility] Last Admin: 02/02/19 09:43 Dose: Not Given Ondansetron HCl (Zofran Injection) 4 mg IVPUSH Q6H PRN PRN Reason: NAUSEA AND/OR VOMITING Laboratory Results - last 24 hr 02/01/19 02/02/19 02/02/19 16:26 07:06 07:25 WBC 5.9 RBC 3.60 L Hgb 11.3 L Hct 33.5 L MCV 93.1 MCH 31.4 MCHC 33.8 RDW 13.7 Plt Count 277 MPV 8.4 Sodium Potassium Chloride Carbon Dioxide Anion Gap BUN Creatinine Est GFR (CKD-EPI)AfAm Est GFR (CKD-EPI)NonAf POC Glucometer 163 137 Random Glucose Calcium 02/02/19 02/02/19 07:25 11:09 WBC RBC Hgb Hct MCV MCH MCHC RDW Plt Count MPV Sodium 138 Potassium 4.5 Chloride 105 Carbon Dioxide 28 Anion Gap 5 L BUN 15.3 Creatinine 0.9 Est GFR (CKD-EPI)AfAm 118.30 Est GFR (CKD-EPI)NonAf 102.07 POC Glucometer 253 Random Glucose 138 H Calcium 8.8 Microbiology 01/28/19 17:08 Blood - Peripheral Venous Blood Culture - Preliminary NO GROWTH OBTAINED AFTER 96 HOURS, INCUBATION TO CONTINUE FOR 1 DAYS. 01/28/19 17:08 Blood - Peripheral Venous Blood Culture - Preliminary NO GROWTH OBTAINED AFTER 96 HOURS, INCUBATION TO CONTINUE FOR 1 DAYS. 01/30/19 11:15 Thigh - Right Gram Stain - Final 01/30/19 11:15 Thigh - Right Wound Culture - Final Mr S Aureus 01/29/19 13:00 Abscess Gram Stain - Final 01/29/19 13:00 Abscess Wound Culture - Final S Aureus 01/29/19 14:45 Nares - Right Nares MRSA Screen - Final NO MRSA ISOLATED 01/29/19 14:45 Nares - Left Nares MRSA Screen - Final NO MRSA ISOLATED ASSESSMENT AND PLAN: 48 yom with PMhx of sarcoidosis, Prior PE, multiple DVTs s/p IVC filter, thombectomy/Thrombolysis in 2016, prior on coumadin, now on lovenox (recent non compliance) , right eye blindness (got hit with a baseball in his youth) and arthritis admitted with right thigh abscess/cellulitis and LLE DVT -Right Thigh abscess/Cellulitis s/p I&D in ED -Right thigh wound bleeding s/p Pressure/hemostasis -LLE DVT (acute on chronic), suspect in the setting of non compliance -Acute blood loss anemia -New diagnosis of DM -H/o multile DVTs s/p IVC filter, also thombectomy/thrombolysis 2016 on full dose lovenox -Sarcoidosis -Right eye blindness -Arthritis -Phencyclidine use Plan: Wound clean wet to dry dressing, change daily after shower or prn, can follow up in wound care center Discussed with ID/surgery Clindamycin for 1 week Start metformin, diabetic education and home blood glucose monitoring counseling provided Lovenox script to be provided dc home +/- VNS today with outpatient follow as above. Nursing to reinforce the dressing instructions discussed with patient.
[2019-02-02 15:23] VITALS: BP 106/60; PULSE 77; TEMP 97.9
[2019-02-02] MEDS: ACETAMINOPHEN 325 MG TABLET (FP) PO PRN (15:59)
--- NOTE | 2019-02-02 19:57 | DS ---
Physical Exam: SUBJECTIVE: Patient seen and examined in the morning. No acute events overnight. No chest pain, no shortness of breath,no abdominal pain, no fevers, no chills. OBJECTIVE: Vital Signs Period Temp Pulse Resp BP Sys/Rees Pulse Ox Last 24 Hr 97.6 F-98.5 F 52-94 18-18 99-112/60-72 98-98 PHYSICAL EXAM GENERAL: The patient is awake, alert, and fully oriented, in no acute distress. LUNGS: Breath sounds equal, clear to auscultation bilaterally, no wheezes, no crackles, no accessory muscle use. HEART: Regular rate and rhythm, S1, S2 without murmur, rub or gallop. ABDOMEN: Soft, nontender, nondistended, normoactive bowel sounds, no guarding, no rebound, no hepatosplenomegaly, no masses. EXTREMITIES: Right thigh wound, packing, gauze, and wrapped. No surrounding swelling or erythema noted. NEUROLOGICAL: Cranial nerves II through XII grossly intact. PSYCH: Normal mood, normal affect. SKIN: Warm, dry, normal turgor, no rashes or lesions noted. LABS Laboratory Results - last 24 hr 02/02/19 02/02/19 02/02/19 07:06 07:25 07:25 WBC 5.9 RBC 3.60 L Hgb 11.3 L Hct 33.5 L MCV 93.1 MCH 31.4 MCHC 33.8 RDW 13.7 Plt Count 277 MPV 8.4 Sodium 138 Potassium 4.5 Chloride 105 Carbon Dioxide 28 Anion Gap 5 L BUN 15.3 Creatinine 0.9 Est GFR (CKD-EPI)AfAm 118.30 Est GFR (CKD-EPI)NonAf 102.07 POC Glucometer 137 Random Glucose 138 H Calcium 8.8 02/02/19 02/02/19 11:09 16:32 WBC RBC Hgb Hct MCV MCH MCHC RDW Plt Count MPV Sodium Potassium Chloride Carbon Dioxide Anion Gap BUN Creatinine Est GFR (CKD-EPI)AfAm Est GFR (CKD-EPI)NonAf POC Glucometer 253 160 Random Glucose Calcium Microbiology 01/28/19 17:08 Blood - Peripheral Venous Blood Culture - Final NO GROWTH AFTER 5 DAYS INCUBATION 01/28/19 17:08 Blood - Peripheral Venous Blood Culture - Final NO GROWTH AFTER 5 DAYS INCUBATION 01/30/19 11:15 Thigh - Right Gram Stain - Final 01/30/19 11:15 Thigh - Right Wound Culture - Final S Aureus 01/29/19 13:00 Abscess Gram Stain - Final 01/29/19 13:00 Abscess Wound Culture - Final S Aureus 01/29/19 14:45 Nares - Right Nares MRSA Screen - Final NO MRSA ISOLATED 01/29/19 14:45 Nares - Left Nares MRSA Screen - Final NO MRSA ISOLATED HOSPITAL COURSE: Date of Admission:01/28/19 Date of Discharge: 02/02/19 48 M diabetes mellitus, prior DVT/PE on Lovenox, sarcoidosis, osteoarthritis with right lower extremity cellulitis. Patient was treated with vancomycin and ceftriaxone initially. Then treated with vancomycin. Then treated with IV clindamycin. Discharged on Clindamycin 300 TID, for 1 week. Patient had cultures that grew MRSA. Patient had I&D completed by general surgery. Patient was found to be diabetic while in hospital. Was discharged on Metformin 500 mg BID, with glucometer. Patient was found to have DVT's during stay, was discharged on Lovenox 120 SQ BID. Relevant Imaging: Chest X-Ray: 2 views of the chest reveals sternal sutures and clips, and prominent mediastinum and clear lungs. The angles are sharp. The soft tissues are intact. There are degenerative changes with wedging. Since 09/11/2015 there is no change of an adverse nature. Correlation recommended. Doppler extremities: Left leg DVT is identified as noted above. No right leg DVT is visualized. Minutes to complete discharge: 35 Discharge Summary Problems reviewed: Yes Reason For Visit: DVT Condition: Stable - Instructions Diet, Activity, Other Instructions: You were admitted to the hospital because you of the infections on your legs. You were seen by the general surgeon, and they drained the abscess on your right thigh. We have given you antibiotics to continue treating your infections. You will continue treatment of this infection after you leave the hospital. To treat your infections please take: Clindamycin, 300 mg, by mouth three times a day for 1 week. Please use wet to dry dressings on the abscess that was drained. You can remove dressing, take shower and apply new dressing. You are arranged for VNS to assist with dressing directions and changes. Your blood work shows that you have diabetes. Your Hba1c (a measure of diabetes ) is 7.8%. Please measure your blood sugars with the glucometer we are prescribing for you and keep a record of the numbers. Please follow the diet recommendations the technical sales advisor gave you during your stay. maintain a diary of your blood sugars and notify your doctor if < 75 or persistently > 140 or any reading >300 noted. To treat your diabetes please take: Metformin 500 mg, by mouth, twice a day. If you notice new rash, diarrhea or any new concerns, please come to ED or call your doctor. We restarted you on a new dose of Lovenox. Please take: Lovenox 120, by injection, twice a day. Please follow up with Dr. Moser within 1 week. You should bring her a copy of your blood sugar numbers. Please follow up with Dr. Lang, the surgeon within 1 week for your abscess. Please follow up with Dr. Issa, the infectious disease doctor, within 1 week for evaluation of your abscess. Return to the emergency department if you have any chest pain, shortness of breath, loss of consciousness, or worsening of your symptoms. [facility] ([facility] ) Issa Lang MD [Staff Physician] - 1 Week Ania Issa MD [Staff Physician] - 1 Week Gabbie Hernandes MD [Primary Care Provider] - 1 Week Disposition: VNS/HOME HEALTH CARE - Home Medications Comprehensive Discharge Medication List: Ambulatory Orders Acetaminophen [Tylenol .Regular Strength -] 650 mg PO Q4H PRN tablet 02/02/19 Clindamycin [Cleocin -] 300 mg PO TID #21 capsule 02/02/19 Enoxaparin [Lovenox -] 120 mg SQ BID 30 Days #60 disp.syrin 02/02/19 Lactobacillus Acidophilus [Bacid -] 1 tab PO DAILY #7 tab 02/02/19 Lancets 1 each MC DAILY #30 each 02/02/19 Miscellaneous Medical Supply [Glucometer Device] 1 each .ROUTE ASDIR #1 kit [employer] [Glucometer Test Strips #50] 1 each .ROUTE ASDIR # 1 box 02/02/19 metFORMIN HCL [Metformin HCl] 500 mg PO BID #60 tablet 02/02/19 This patient is new to me today: Yes Date on this admission: 02/02/19 Emergency Visit: Yes ED Registration Date: 01/28/19 Care time: The patient presented to the Emergency Department on the above date and was hospitalized for further evaluation of their emergent condition. Critical Care patient: No - Discharge Referral Referred to [facility] No ATTENDING PHYSICIAN STATEMENT I saw and evaluated the patient. I reviewed the resident's note and discussed the case with the resident. I agree with the resident's findings and plan as documented. SUBJECTIVE: OBJECTIVE: ASSESSMENT AND PLAN:
--- NOTE | 2019-02-04 14:26 | OP ---
DATE OF OPERATION: 01/30/2019 PREOPERATIVE DIAGNOSIS: Abscess, right thigh. POSTOPERATIVE DIAGNOSIS: Abscess, right thigh. PROCEDURE: Incision and drainage of right thigh abscess. SURGEON: Issa Lang MD ANESTHESIA: General. OPERATIVE FINDINGS: Patient had an abscess in the soft tissue of the right anterior thigh with induration and cellulitis. The rest of the findings were unremarkable. PROCEDURE: The patient was placed on the operating room table in the supine position, and after the induction of general anesthesia, the patient's right thigh was prepped with Betadine and draped in sterile fashion. A timeout was taken. An incision made over the fluctuant area with drainage of purulent material which was sent for culture and sensitivity. All loculations were broken up using blunt dissection. Copious irrigation was carried out with normal saline and peroxide. Hemostasis was secured with electrocautery and the wound packed with 1/2-inch iodoform packing and dressed with dry sterile dressings. The procedure terminated at this point. The patient roused from general anesthesia, and transferred to the postanesthesia care unit, in stable condition, awake, and alert. ESTIMATED BLOOD LOSS: 5 mL. REPLACEMENTS: Crystalloid. DRAINS: None. SPECIMEN: Wound culture to Microbiology. I, Issa Lang, was physically present in the operating room from the time the patient was placed on the operating room table until he was transferred to the postanesthesia care unit in my accompaniment. MD MILES Gu/[id number] MTDD
== END 2019-02-02 17:04 | disposition home health service (06) | DRG 383 ==
LOC: JER 14:39 → JERBED 18:34 → J8W 21:11 → J5S 01-30 12:52
PROVIDERS: ADMIT Internal Medicine; ATTEND Hospitalist
PROC: 0Y9C0ZZ Drainage of Right Upper Leg, Open Approach (ICD-10-PCS; principal; 2019-01-30 11:15)
DX: L02.415 Cutaneous abscess of right lower limb (principal); D86.9 Sarcoidosis, unspecified; E11.9 Type 2 diabetes mellitus without complications; D62 Acute posthemorrhagic anemia; F16.10 Hallucinogen abuse, uncomplicated; I82.412 Acute embolism and thrombosis of left femoral vein; Z88.0 Allergy status to penicillin; E66.9 Obesity, unspecified; Z68.35 Body mass index [BMI] 35.0-35.9, adult; R74.0 Nonspecific elevation of levels of transaminase and lactic acid dehydrogenase [LDH]; H54.40 Blindness, one eye, unspecified eye; M19.90 Unspecified osteoarthritis, unspecified site
CPT/HCPCS: 36415; 71046-TC-FY; 76705-TC; 80048; 80053; 80307; 81003; 82248; 82962; 83036; 83735; 84100; 85025; 85027; 85610; 85651; 85730; 86140; 86850; 86900; 86901; 87040; 87070; 87081; 87186; 87205; 93005; 93010; 93970-TC; 94760; 99284-25; J0131; J7030